=== PATIENT | female | born 1955 | race Caucasian/White ===

== ENCOUNTER 2016-05-13 08:43 | Inpatient (IN) | payer OTHER ==
[~2016-05-13] VITALS: Ht 162.6 cm; Wt 97.0 kg
[~2016-05-13 08:43] MED LIST: AMR2 PO; BUPR75TA20 PO; GLC500 PO; OMEP20TA PO; ONDA4TAB4 PO
[2016-05-13] MEDS ORDERED: METF-384 PO (08:56)
[2016-05-13] MEDS ORDERED: SODIUM CHLORIDE 0.9% 1000ML 1,000 ML IV STA (08:58)
[2016-05-13] MEDS ORDERED: ONDANSETRON INJ 2 MG/ML 2 ML VIAL IV STA (08:58)
[2016-05-13] MEDS ORDERED: HYDROmorphone INJ 0.5 MG/0.5 ML SYR IV STA ×2 (08:58→10:49)
[2016-05-13] MEDS ORDERED: OPTIRAY 320 IV PRN (09:15)
[2016-05-13 09:21] LABS: HEMATOCRIT 36.2 % (37-47); MEAN CELL VOLUME 84.2 fL (80-100); MEAN CORPUSCULAR HEMOGLOBIN 29.1 pg (25-34); MEAN CORPUSCULAR HGB CONC 34.5 g/dl (32-36); MEAN PLATELET VOLUME 10.3 fL (7.4-10.4); PLATELET COUNT 144 K/uL (130-400); WHITE BLOOD COUNT 7.72 K/uL (4.8-10.8)
[2016-05-13 09:27] LABS: URINE APPEARANCE CLEAR (CLEAR); URINE BILIRUBIN NEG (NEG); URINE COLOR YELLOW; URINE EPITHELIAL CELL AUTO 20-30 /lpf (0-5); URINE NITRITE NEG (NEG); URINE PH 5.5 (4.5-7.5); URINE SPECIFIC GRAVITY 1.028 (1.000-1.030); UROBILINOGEN NEG (NEG); ZZUR CULT IF INDIC CLEAN CATCH YES
[2016-05-13 09:28] LABS: MANUAL MICROSCOPIC REQUIRED? NO; REVIEW REQ? NO
[2016-05-13 09:47] LABS: ALB/GLOB RATIO 0.6 (0.9-2); CALCIUM 9.2 mg/dl (8.5-10.1); CREATININE 1.1 mg/dl (0.60-1.20); MAGNESIUM 1.9 mg/dl (1.8-2.4); POTASSIUM 3.7 mmol/L (3.5-5.1)
[2016-05-13 10:09] LABS: BETA-HYDROXYBUTYRATE 9.16 mg/dL (0.2-2.81)
[2016-05-13] MEDS ORDERED: SODIUM CHLORIDE 0.9% 500ML 500 ML IV STA (10:17)
[2016-05-13 10:19] LABS: BASO % 0.6 %; BASO ABS # 0.05 K/uL (0-0.2); COMPLETE YES; EOS % 2.2 %; IG% 0.3 %; LYMPH % 25.9 %; MONO % 15.3 %; NEUT % 55.7 %
[2016-05-13] MEDS ORDERED: LISI-461 PO (10:54)
[2016-05-13] MEDS ORDERED: INSULIN IV INFUSION PROTOCOL STA ×2 (11:09→12:53)
[2016-05-13] MEDS ORDERED: MODERATE STRESS LEVEL ONE ×2 (11:15→13:00)
[2016-05-13] MEDS ORDERED: HHS GOAL RANGE 250-350 mg/dl ONE ×2 (11:15→13:00)
[2016-05-13] MEDS ORDERED: TRAZ50TA35 PO (11:17)
[2016-05-13] MEDS ORDERED: CYCL5TAB PO (11:17)
[2016-05-13] MEDS ORDERED: ATOR80TA PO (11:17)
--- NOTE | 2016-05-13 11:44 | DIAGNOSTIC IMAGING REPORT ---
CT OF THE ABDOMEN AND PELVIS WITH CONTRAST CLINICAL HISTORY: Right lower quadrant abdominal pain. COMPARISON STUDY: CT of the abdomen and pelvis February 29, 2016. TECHNIQUE: Following IV administration of 93 mL of Optiray-320, axial images of the abdomen and pelvis were obtained from the lung bases to the proximal femurs. Images were reviewed in the axial, sagittal, and coronal planes. IV contrast was administered without complication. CT DOSE: 1122.29 mGy.cm FINDINGS: A 5 mm distal right ureteral calculus results in mild to moderate right hydroureteronephrosis. There is perinephric and periureteral ureteral infiltration with wall thickening of the right ureter. No left ureteral calculi are present. A 2 cm lesion arising from the lower pole of the right kidney measures just above water attenuation. This lesion is indeterminate although a cyst is favored. Nodularity liver surface suggests cirrhosis. No hepatic lesions are identified although sensitivity for detection of hypervascular lesions is diminished on this exam. The spleen is mildly enlarged. There are calcified granulomas within the spleen. A 2.1 cm right adrenal nodule is unchanged and is likely benign. The left adrenal gland, left kidney and pancreas are normal. Mild biliary ductal dilatation is unchanged and likely due to prior cholecystectomy. There is no evidence for a bowel obstruction. There is no lymphadenopathy. No suspicious skeletal lesions are identified. IMPRESSION: 1. 5 mm distal right ureteral calculus with resultant mild to moderate right hydroureteronephrosis. Mildly delayed right nephrogram due to the obstruction. Wall thickening of the right ureter is likely due to the obstruction although a superimposed infectious process could appear similar. 2. Cirrhotic liver. Mild splenomegaly. 3. 2 cm right renal lesion. This measures just above water attenuation. This lesion is indeterminate although a cyst is favored. Electronically signed by: Deuce Negron M.D. 05/13/2016 11:42 AM Dictated Date/Time: 05/13/2016 11:36 AM
[2016-05-13] MEDS ORDERED: CEFTRIAXONE SOD INJ 1 GM ADDVIAL IV STA (11:50)
[2016-05-13] MEDS ORDERED: DEXTROSE 50% 50 ML SYR IV PRN (12:00)
[2016-05-13] MEDS ORDERED: INSULIN HUMAN REGULAR IV BOLUS 2.5 UNIT in SYRINGE 0 ML IV SCH (12:00)
[2016-05-13] MEDS ORDERED: GLUCOSE 40% GEL 15 GM TUBE PO PRN (12:00)
[2016-05-13] MEDS ORDERED: GLUCAGON FOR INJ 1 MG VIAL SQ PRN (12:00)
[2016-05-13] MEDS ORDERED: GLUCOSE 10 TABS/TUBE PO PRN (12:00)
[2016-05-13] MEDS ORDERED: INSULIN REGULAR 250 UNITS in SODIUM CHLORIDE 0.9% 250ML 250 ML IV SCH (12:01)
[2016-05-13 12:44] VITALS: BP 128/57; PULSE 84; TEMP 37.5; O2SAT 95; BMI 36.7
[2016-05-13] MEDS ORDERED: ONDANSETRON INJ 2 MG/ML 2 ML VIAL IV PRN (13:00)
[2016-05-13] MEDS ORDERED: TAMSULOSIN HCL 0.4 MG CAP PO ONE (13:00)
[2016-05-13] MEDS ORDERED: INSULIN ASPART 100 UNITS/ML 3 ML PEN SC SCH ×2 (13:00)
[2016-05-13] MEDS ORDERED: CLONAZEPAM 0.5 MG TAB PO PRN (13:15)
[2016-05-13] MEDS ORDERED: MoRPHine SULFATE 4 MG/ML 1 ML CARP\\VIAL IV PRN (13:45)
[2016-05-13] MEDS ORDERED: FLUO20CA35 PO (13:47)
--- NOTE | 2016-05-13 13:50 | History and Physical ---
History & Physical Date & Time of Service: May 13, 2016 at 13:24 Chief Complaint: RLQ Abdominal Pain Primary Care Physician: Lani Andrade D.O. History of Present Illness 60 year old female who presents to the ER with RLQ abdominal pain. Patient reports she has had the pain for the past several weeks however it has been increasing in frequency and intensity over the past few days. She has had intermittent nausea with dry heaving. No vomiting. Several months ago patient was having diarrhea and she self stopped her diabetic medications as she felt it was causing the diarrhea. Since stopping the medicines, diarrhea has resolved. She denies fever and chills. No dysuria or hematuria. She denies chest pain and shortness of breath. No lightheadedness, dizziness, diaphoresis, or syncopal events. In the ER, patient underwent a CT abd/pelvis that showed 5mm distal right ureteral calculi. Glucose is found to be 766 and lipase is 761. Remainder of her labs are unremarkable. Vitas are stable. Patient was treated with IVF, Rocephin, and started in insulin drip. She was also given Dilaudid and Zofran. Past Medical/Surgical History Medical Problems: (1) Robins esophagus Status: Chronic (2) Breast cancer Status: Chronic (3) DM type 2 (diabetes mellitus, type 2) Status: Chronic (4) Dyslipidemia Status: Chronic (5) Fibromyalgia Status: Chronic (6) Hypothyroidism Status: Chronic (7) LIU (nonalcoholic steatohepatitis) Status: Chronic (8) ROXANNE (obstructive sleep apnea) Status: Chronic Surgical Problems: (1) H/O partial mastectomy Status: Chronic (2) H/O tubal ligation Status: Chronic (3) Hx of cholecystectomy Status: Chronic Family History FH: heart disease MOTHER ( at 56 from [place]) Social History Smoking Status: Current Every Day Smoker Alcohol Use: none Marital Status: Immunizations History of Influenza Vaccine: Yes Influenza Vaccine Date: May 26, 2015 History of Tetanus Vaccine?: Yes (UTD) Tetanus Immunization Date: Dec 02, 2007 History of Pneumococcal: Yes Pneumococcal Date: Dec 02, 2007 History of Hepatitis B Vaccine: Yes Hepatitis Immunization Date: September 15, 2013 Multi-Drug Resistant Organisms History of MDRO: No Allergies Coded Allergies: Morphine (Verified Adverse Reaction, Mild, DOES NOT RELIEVE PAIN, 05/13/16) Gabapentin (Verified Adverse Reaction, Unknown, NIGHTMARES, 05/13/16) Home Medications Scheduled Aspirin Enteric Coated (Ecotrin Or Generic), 162 MG PO QPM Atorvastatin Calcium (Lipitor), 80 MG PO DAILY Fluoxetine (Prozac), 40 MG PO DAILY Levothyroxine Sodium (Levothyroxine Sodium), 50 MCG PO DAILY Lisinopril (Zestril), 10 MG PO DAILY Ranitidine Hcl (Zantac), 300 MG PO HS Trazodone Hcl (Trazodone), 50 MG PO HS Scheduled PRN Clonazepam (Klonopin), 0.5 MG PO TID PRN for Anxiety/Agitation Cyclobenzaprine Hcl (Flexeril), 1 TAB PO BID PRN for prn Review of Systems 10 point review of systems was completed with the pertinent positives and negatives noted per the HPI Physical Exam Vital Signs Date Time Temp Pulse Resp B/P Pulse Ox O2 Delivery O2 Flow Rate FiO2 05/13/16 13:03 80 18 173/72 95 Room Air 05/13/16 12:44 37.5 84 16 128/57 95 Room Air 05/13/16 12:25 85 16 128/57 05/13/16 10:27 86 18 144/71 93 Room Air 05/13/16 08:45 37.5 97 18 130/81 95 Room Air General Appearance: no apparent distress Head: normocephalic Eyes: normal inspection, PERRL, EOMI ENT: hearing grossly normal Neck: supple, no JVD Respiratory/Chest: no respiratory distress, + decreased breath sounds Cardiovascular: regular rate, rhythm, no edema, normal peripheral pulses Abdomen/GI: normal bowel sounds, soft, + tenderness (generalized, more pronounced in RLQ) Extremities/Musculoskelatal: normal inspection, no calf tenderness Neurologic/Psych: no motor/sensory deficits, alert, normal mood/affect, oriented x 3 Skin: normal color, warm/dry Diagnostics Laboratory Results Results Past 24 Hours Test 05/13/16 08:40 05/13/16 09:05 05/13/16 11:38 05/13/16 12:54 Range/Units Urine Color YELLOW Urine Appearance CLEAR CLEAR Urine pH 5.5 4.5-7.5 Urine Specific [place] 1.028 1.000-1.030 Urine Protein 1+ NEG Urine Glucose (UA) 3+ NEG Urine Ketones 1+ NEG Urine Occult Blood 2+ NEG Urine Nitrite NEG NEG Urine Bilirubin NEG NEG Urine Urobilinogen NEG NEG Urine Leukocyte Esterase NEG NEG Urine WBC (Auto) 10-30 0-5 /hpf Urine RBC (Auto) 10-30 0-4 /hpf Urine Hyaline Casts (Auto) 1-5 0-5 /lpf Urine Epithelial Cells (Auto) 20-30 0-5 /lpf Urine Bacteria (Auto) 1+ NEG White Blood Count 7.72 4.8-10.8 K/uL Red Blood Count 4.30 4.2-5.4 M/uL Hemoglobin 12.5 12.0-16.0 g/dL Hematocrit 36.2 37-47 % Mean Corpuscular Volume 84.2 80-100 fL Mean Corpuscular Hemoglobin 29.1 25-34 pg Mean Corpuscular Hemoglobin Concent 34.5 32-36 g/dl Platelet Count 144 130-400 K/uL Mean Platelet Volume 10.3 7.4-10.4 fL Neutrophils (%) (Auto) 55.7 % Lymphocytes (%) (Auto) 25.9 % Monocytes (%) (Auto) 15.3 % Eosinophils (%) (Auto) 2.2 % Basophils (%) (Auto) 0.6 % Neutrophils # (Auto) 4.30 1.4-6.5 K/uL Lymphocytes # (Auto) 2.00 1.2-3.4 K/uL Monocytes # (Auto) 1.18 0.11-0.59 K/uL Eosinophils # (Auto) 0.17 0-0.5 K/uL Basophils # (Auto) 0.05 0-0.2 K/uL RDW Standard Deviation 44.8 36.4-46.3 fL RDW Coefficient of Variation 14.6 11.5-14.5 % Immature Granulocyte % (Auto) 0.3 % Immature Granulocyte # (Auto) 0.02 0.00-0.02 K/uL Sodium Level 130 136-145 mmol/L Potassium Level 3.7 3.5-5.1 mmol/L Chloride Level 92 98-107 mmol/L Carbon Dioxide Level 22 21-32 mmol/L Anion Gap 16.0 3-11 mmol/L Blood Urea Nitrogen 14 7-18 mg/dl Creatinine 1.10 0.60-1.20 mg/dl Est Creatinine Clear Calc Drug Dose 60.7 ml/min Estimated GFR () 62.8 Estimated GFR (Non- 54.1 BUN/Creatinine Ratio 13.0 10-20 Random Glucose 766 70-99 mg/dl Calcium Level 9.2 8.5-10.1 mg/dl Magnesium Level 1.9 1.8-2.4 mg/dl Total Bilirubin 0.8 0.2-1 mg/dl Aspartate Amino Transf (AST/SGOT) 21 15-37 U/L Alanine Aminotransferase (ALT/SGPT) 20 12-78 U/L Alkaline Phosphatase 143 45-117 U/L Total Protein 7.5 6.4-8.2 gm/dl Albumin 2.8 3.4-5.0 gm/dl Globulin 4.7 2.5-4.0 gm/dl Albumin/Globulin Ratio 0.6 0.9-2 Lipase 761 73-393 U/L Beta-Hydroxybutyric Acid 9.16 0.2-2.81 mg/dL Bedside Glucose 563 70-90 mg/dl Microbiology Results 05/13/16 Blood Culture, Received Pending 05/13/16 Blood Culture, Received Pending 05/13/16 Urine Culture, Received Pending Diagnostic Radiology CT ABD/PELVIS IMPRESSION: 1. 5 mm distal right ureteral calculus with resultant mild to moderate right hydroureteronephrosis. Mildly delayed right nephrogram due to the obstruction. Wall thickening of the right ureter is likely due to the obstruction although a superimposed infectious process could appear similar. 2. Cirrhotic liver. Mild splenomegaly. 3. 2 cm right renal lesion. This measures just above water attenuation. This lesion is indeterminate although a cyst is favored. Impression Assessment and Plan RIGHT RENAL CALCULI WITH HYDROURETERONEPHROSIS - admit to med/surg - case discussed with Dr. Perez - will start Flomax, IVF - strain urine - U/A from ED likely contaminated; will get straight cath urine - s/p Rocephin in ED; will continue with Zosyn, adjust per culture results - do not suspect sepsis - urine culture 02/2016 grew fluoroquinolone resistant E. Coli SEVERE HYPERGLYCEMIA - patient self stopped diabetic meds several months ago - presenting with blood sugar 700 - hgb a1c 7.3 11/2015, will recheck - will start insulin gtt with transition to SQ - PRP q4h while on insulin gtt - no signs of DKA ELEVATED LIPASE - ? clinical significance - history and physical exam not consistent with pancreatitis - pancreas unremarkable on CT, LFTs WL - ? due to severe hyperglycemia - clear liquids, IVF - follow up level in AM HTN - BP controlled, continue lisinopril HYPOTHYROIDISM - continue levothyroxine ROBINS'S ESOPHAGUS - continue H2 karan DYSLIPIDEMIA - continue statin DVT PROPHYLAXIS - SCDs DISPO - In my clinical judgment this beneficiary meets acute admission criteria, established by [facility], that includes being hospitalized through two midnights. Attending Note: Patient is a 60 yr old female with multiple comorbidities presents with history of worsening RLQ abdominal pain since few days. Abd pain is associated with nausea but denies vomiting. CT abd showed 5mm R ureteral stone with hydroureteronephrosis. Also found to have uncontrolled blood sugar level secondary to medication non compliance. Reports not taking metformin secondary to diarrhea which she reports has resolved. Physical Exam: Vitals signs as noted above General Appearance:Obese, no apparent distress Head: normocephalic, Atraumatic Eyes: normal inspection, EOMI, PERRLA Neck: supple, no JVD, Trachea midline Respiratory/Chest: Decreased breath sounds, CTA, No accessory muscle use Cardiovascular: S1, S2, NSR, No murmur Abdomen/GI:Soft, RLQ tenderness, Bowel sounds present, No guarding/rigidity, no flank tenderness Extremities/Musculoskelatal:normal inspection, no calf tenderness Neurologic/Psych:AAOX3, grossly no focal neurological deficits Skin:normal color,warm Assessment and Plan: Renal caliculi leading to Hydroureteronephrosis: IV fluids, IV antibiotics Pain control Check Cultures Urology consulted WBC:wnl, Hb:12.5 [place] with Flomax for spontaneous voiding Uncontrolled DM II Secondary to medication non compliance Continue Insulin drip Last A1C: 7.3 I personally reviewed the record. Patient is interviewed and examined at bedside. Patient's care is coordinated with Luz Elena Colindres [employer]. Please refer to the documentation above for details of patient's presentation and for discussion of other issues. Advanced Directives Existing Advance Directive: No Existing Living Will: No Existing Power of Social Worker: No VTE Prophylaxis VTE Risk Assessment Done? Y/N: Yes Risk Level: Moderate
[2016-05-13] MEDS ORDERED: CEFTRIAXONE SOD INJ 1 GM ADDVIAL ONE (14:14)
[2016-05-13] MEDS ORDERED: PHARMACY GLYCEMIC MGMT CONSULT PRN (14:45)
[2016-05-13] MEDS ORDERED: PIPERACILL/TAZOBAC CONSULT ACTIVE PRN (15:15)
[2016-05-13] MEDS: SODIUM CHLORIDE 0.9% 1000ML 1,000 ML IV SCH ×2 (15:26→21:28)
--- NOTE | 2016-05-13 15:29 | Pharmacy Progress Note ---
Glycemic Control Intl Consult Date of Service May 13, 2016. Scope Glycemic Pharmacist consulted by DAVID Hamilton on 05/13/16 for glycemic control and to write orders per formerly [facility] inpatient glycemic control protocol Objective Weight (Kilograms): 97.000 Accuchecks BSG (last 24hrs): Test 05/13/16 09:05 05/13/16 11:38 05/13/16 13:13 05/13/16 14:19 Random Glucose 766 mg/dl (70-99) Bedside Glucose 563 mg/dl (70-90) 472 mg/dl (70-90) 414 mg/dl (70-90) Laboratory Data (last 24hrs) Test 05/13/16 09:05 Anion Gap 16.0 mmol/L BUN/Creatinine Ratio 13.0 Blood Urea Nitrogen 14 mg/dl Creatinine 1.10 mg/dl Potassium Level 3.7 mmol/L Sodium Level 130 mmol/L White Blood Count 7.72 K/uL Red Blood Count 4.30 M/uL Hemoglobin 12.5 g/dL Hematocrit 36.2 % Mean Corpuscular Volume 84.2 fL Mean Corpuscular Hemoglobin 29.1 pg Mean Corpuscular Hemoglobin Concent 34.5 g/dl Platelet Count 144 K/uL Mean Platelet Volume 10.3 fL Neutrophils (%) (Auto) 55.7 % Lymphocytes (%) (Auto) 25.9 % Monocytes (%) (Auto) 15.3 % Eosinophils (%) (Auto) 2.2 % Basophils (%) (Auto) 0.6 % Neutrophils # (Auto) 4.30 K/uL Lymphocytes # (Auto) 2.00 K/uL Monocytes # (Auto) 1.18 K/uL Eosinophils # (Auto) 0.17 K/uL Basophils # (Auto) 0.05 K/uL Recent Pertinent Medications Outpatient Anti-diabetic Regimen: * none * A1c = 7.3 % 11/2015 The patient is currently receiving: * Insulin Drip (started in the ED) Risk Factors for Insulin Resistance: * Infection * IVF * Diet Assessment & Plan ASSESSMENT: * 60 yo F admitted with UTI and BSGs in the 700's, initiated on an insulin drip per protocol * BSGs trending down nicely, most recent readings in the low 400's * Apparently patient is known to have T2DM but recently stopped all diabetic medications herself * Most recent A1c is from November, so an up-to-date A1c will be helpful in gauging where her BSGs have been trending * Plan will be to continue insulin drip through the night and reassess in the AM PLAN FOR INPATIENT GLYCEMIC CONTROL: * Continue IV insulin infusion per moderate stress protocol * Goal Range 250 - 350 mg/dl * In the critical care setting, continuous IV insulin infusion has been shown to be the best method for achieving glycemic targets e plan above was derived based on current level of insulin resistance and hospital stress. These recommendations are appropriate for inpatient admission only. Plan of care upon discharge will need to be reassessed to avoid potential outpatient hypo/hyperglycemia. Thank you.
[2016-05-13] MEDS ORDERED: LEVO50TA6 PO (15:40)
[2016-05-13] MEDS ORDERED: RANI300T PO (15:40)
[2016-05-13] MEDS: INSULIN ASPART 100 UNITS/ML 3 ML PEN SC SCH ×3 (15:45→21:30)
[2016-05-13] MEDS: INSULIN REGULAR 250 UNITS in SODIUM CHLORIDE 0.9% 250ML 250 ML IV SCH ×4 (15:49→21:29)
[2016-05-13] MEDS ORDERED: PIPERACILL/TAZOBAC IV 3.375 GM in DEXTROSE 5% 100ML IV ONE (16:00)
[2016-05-13] MEDS ORDERED: CLON0.5T3 PO (17:04)
[2016-05-13 17:20] LABS: BUN/CREATININE RATIO 13.5 (10-20); CALCIUM 8.5 mg/dl (8.5-10.1); CREATININE 0.75 mg/dl (0.60-1.20); POTASSIUM 3.4 mmol/L (3.5-5.1)
--- NOTE | 2016-05-13 17:22 | Urology Consultation ---
History General Date of Service: May 13, 2016. Chief Complaint: right ureteral stone Primary Care Physician: Lani Andrade D.O. Pt seen a urologist before?: No History of Present Illness I am asked by Luz Elena BOB to evaluate and treat patient for stone. SHe is admitted with right renal colic and hyperglycemia. She has had pain for 2 weeks but some of it sounds like back spine problems as she had a radiculopathy down leg and inability to bear weight. More recently she had fever nause aand emesis. Her ct shows a 5mm right UVJ stone with mild hydro. She is afebrile currently with normal white count. Voided urine in ER is contaminated. She is on insulin drip and iv abt now. She feels well. This is her firt stone. Her pain is mostly RLQ with rare right kidney pain. Imaging Imaging: CT Laboratory Results Past 24 Hours Test 05/13/16 08:40 05/13/16 09:05 05/13/16 11:38 05/13/16 12:54 Range/Units Urine Color YELLOW Urine Appearance CLEAR CLEAR Urine pH 5.5 4.5-7.5 Urine Specific [place] 1.028 1.000-1.030 Urine Protein 1+ NEG Urine Glucose (UA) 3+ NEG Urine Ketones 1+ NEG Urine Occult Blood 2+ NEG Urine Nitrite NEG NEG Urine Bilirubin NEG NEG Urine Urobilinogen NEG NEG Urine Leukocyte Esterase NEG NEG Urine WBC (Auto) 10-30 0-5 /hpf Urine RBC (Auto) 10-30 0-4 /hpf Urine Hyaline Casts (Auto) 1-5 0-5 /lpf Urine Epithelial Cells (Auto) 20-30 0-5 /lpf Urine Bacteria (Auto) 1+ NEG White Blood Count 7.72 4.8-10.8 K/uL Red Blood Count 4.30 4.2-5.4 M/uL Hemoglobin 12.5 12.0-16.0 g/dL Hematocrit 36.2 37-47 % Mean Corpuscular Volume 84.2 80-100 fL Mean Corpuscular Hemoglobin 29.1 25-34 pg Mean Corpuscular Hemoglobin Concent 34.5 32-36 g/dl Platelet Count 144 130-400 K/uL Mean Platelet Volume 10.3 7.4-10.4 fL Neutrophils (%) (Auto) 55.7 % Lymphocytes (%) (Auto) 25.9 % Monocytes (%) (Auto) 15.3 % Eosinophils (%) (Auto) 2.2 % Basophils (%) (Auto) 0.6 % Neutrophils # (Auto) 4.30 1.4-6.5 K/uL Lymphocytes # (Auto) 2.00 1.2-3.4 K/uL Monocytes # (Auto) 1.18 0.11-0.59 K/uL Eosinophils # (Auto) 0.17 0-0.5 K/uL Basophils # (Auto) 0.05 0-0.2 K/uL RDW Standard Deviation 44.8 36.4-46.3 fL RDW Coefficient of Variation 14.6 11.5-14.5 % Immature Granulocyte % (Auto) 0.3 % Immature Granulocyte # (Auto) 0.02 0.00-0.02 K/uL Sodium Level 130 136-145 mmol/L Potassium Level 3.7 3.5-5.1 mmol/L Chloride Level 92 98-107 mmol/L Carbon Dioxide Level 22 21-32 mmol/L Anion Gap 16.0 3-11 mmol/L Blood Urea Nitrogen 14 7-18 mg/dl Creatinine 1.10 0.60-1.20 mg/dl Est Creatinine Clear Calc Drug Dose 60.7 ml/min Estimated GFR () 62.8 Estimated GFR (Non- 54.1 BUN/Creatinine Ratio 13.0 10-20 Random Glucose 766 70-99 mg/dl Calcium Level 9.2 8.5-10.1 mg/dl Magnesium Level 1.9 1.8-2.4 mg/dl Total Bilirubin 0.8 0.2-1 mg/dl Aspartate Amino Transf (AST/SGOT) 21 15-37 U/L Alanine Aminotransferase (ALT/SGPT) 20 12-78 U/L Alkaline Phosphatase 143 45-117 U/L Total Protein 7.5 6.4-8.2 gm/dl Albumin 2.8 3.4-5.0 gm/dl Globulin 4.7 2.5-4.0 gm/dl Albumin/Globulin Ratio 0.6 0.9-2 Lipase 761 73-393 U/L Beta-Hydroxybutyric Acid 9.16 0.2-2.81 mg/dL Bedside Glucose 563 70-90 mg/dl Lactic Acid Level 1.2 0.4-2.0 mmol/L Test 05/13/16 13:13 05/13/16 14:19 05/13/16 15:20 05/13/16 16:20 Range/Units Bedside Glucose 472 414 385 70-90 mg/dl Test 05/13/16 16:27 Range/Units Bedside Glucose 352 70-90 mg/dl Microbiology Results 05/13/16 Blood Culture, Received Pending 05/13/16 Blood Culture, Received Pending 05/13/16 Urine Culture, Received Pending 05/13/16 Urine Culture, Received Pending Labs were reviewed and are within normal limits unless listed below. Labs are available in the chart and at [facility] Past History cancer - breast, COPD, diabetes, GERD, hypothyroidism, kidney stones, other ( barretts esoph, LIU liver) Past Surgical History: mastectomy, tubal ligation Family History FH: heart disease MOTHER ( at 56 from [place]) brother had stones Social History Hx Tobacco Use In Past Year?: Yes Smokin pack/day Alcohol: history of alcohol abuse Drug use: none Marital status: Housing status: lives with family Occupation status: unemployed Immunizations History of Influenza Vaccine: Yes Influenza Vaccine Date: May 26, 2015 History of Tetanus Vaccine?: Yes (UTD) Tetanus Immunization Date: Dec 02, 2007 History of Pneumococcal: Yes Pneumococcal Date: Dec 02, 2007 History of Hepatitis B Vaccine: Yes Hepatitis Immunization Date: September 15, 2013 History of MDRO No Allergies Coded Allergies: Morphine (Verified Adverse Reaction, Mild, DOES NOT RELIEVE PAIN, 05/13/16) Gabapentin (Verified Adverse Reaction, Unknown, NIGHTMARES, 05/13/16) Medications Home Medications: Home Meds and Scripts Medications Dose Route/Sig Max Daily Dose Days Date Category Zantac (Ranitidine Hcl) 300 Mg Tab 300 Mg PO HS 02/29/16 Reported Levothyroxine Sodium 50 Mcg Tab 50 Mcg PO DAILY 02/29/16 Reported Trazodone (Trazodone HCl) 50 Mg Tab 50 Mg PO HS 12/13/14 Reported Lipitor (Atorvastatin Calcium) 80 Mg Tab 80 Mg PO DAILY 12/13/14 Reported Flexeril (Cyclobenzaprine Hcl) 5 Mg Tab 1 Tab PO BID PRN 30 12/13/14 Reported Klonopin (Clonazepam) 0.5 Mg Tab 0.5 Mg PO TID PRN 08/14/12 Reported Zestril (Lisinopril) 10 Mg Tab 10 Mg PO DAILY 12/26/11 Reported Ecotrin Or Generic (Aspirin) 81 Mg Tab 162 Mg PO QPM 07/15/11 Reported Prozac (Fluoxetine HCl) 20 Mg Cap 40 Mg PO DAILY 06/28/08 Reported Inpatient Medications: Current Inpatient Medications Medications (Trade) Dose Ordered Sig/Alfonzo Route Start Time Stop Time Status Last Admin Dose Admin Ioversol (Optiray 320) 100 ml UD PRN IV 05/13/16 09:15 05/17/16 09:14 Insulin Aspart (novoLOG ASPART) SLIDING SCALE PCHS SC 05/13/16 13:00 06/12/16 12:59 Glucose (Glucose 40% Gel) UD PRN PO 05/13/16 12:00 06/12/16 11:59 Glucose (Glucose Chew Tab) 1 tabs UD PRN PO 05/13/16 12:00 06/12/16 11:59 Dextrose (Dextrose 50% 50ML Syringe) 50 ml UD PRN IV 05/13/16 12:00 06/12/16 11:59 Glucagon (Glucagon Inj) 1 mg UD PRN SQ 05/13/16 12:00 06/12/16 11:59 Acetaminophen (Tylenol Tab) 650 mg Q4H PRN PO 05/13/16 13:00 06/12/16 12:59 Ondansetron HCl (Zofran Inj) 4 mg Q6H PRN IV 05/13/16 13:00 06/12/16 12:59 Piperacillin Sod/ Tazobactam Sod 1 ea 1 ea UD PRN N/A 05/13/16 15:15 06/12/16 15:14 Sodium Chloride (Nss 1000ml) 1,000 ml @ 125 mls/hr Q8H IV 05/13/16 13:00 06/12/16 12:59 05/13/16 15:26 125 MLS/HR Tamsulosin HCl (Flomax Cap) 0.4 mg QAM PO 05/14/16 09:00 06/13/16 08:59 Aspirin (Ecotrin Tab) 162 mg QPM PO 05/13/16 21:00 06/12/16 20:59 Atorvastatin Calcium (Lipitor Tab) 80 mg DAILY PO 05/14/16 09:00 06/13/16 08:59 Clonazepam (Klonopin Tab) 0.5 mg TID PRN PO 05/13/16 13:15 06/12/16 13:14 Fluoxetine HCl (Prozac Cap) 40 mg DAILY PO 05/14/16 09:00 06/13/16 08:59 Levothyroxine Sodium (Synthroid Tab) 50 mcg DAILYBB PO 05/14/16 06:30 06/13/16 06:59 Lisinopril (Zestril Tab) 10 mg DAILY PO 05/14/16 09:00 06/13/16 08:59 Trazodone HCl (Desyrel Tab) 50 mg HS PO 05/13/16 21:00 06/12/16 20:59 Ranitidine HCl (zANTac TAB) 300 mg HS PO 05/13/16 21:00 06/12/16 20:59 Morphine Sulfate (MoRPHine SULFATE INJ) 3 mg Q4H PRN IV 05/13/16 13:45 05/27/16 13:44 Miscellaneous Information 1 ea 1 ea UD PRN N/A 05/13/16 14:45 06/12/16 14:44 Insulin Human Regular 250 units/ Sodium Chloride 252.5 ml @ 0 mls/hr DAILY@1130 IV 05/13/16 15:00 06/12/16 14:59 05/13/16 15:49 2.4 MLS/HR Piperacillin Sod/ Tazobactam Sod/ Dextrose (Zosyn Iv/D5 100ml) 115 ml @ 28.75 mls/ hr Q8H IV 05/13/16 22:00 05/23/16 21:59 Review of Systems Review of Systems Constitutional: + chills, + fever, No weight loss Neurological: + dizzy Endocrine: + excessive thirst Gastrointestinal: + nausea, + vomiting Cardiovascular: No chest pain, No irregular heartbeat, No palpitations, No swelling ankles/feet Respiratory: + chronic cough, + shortness of breath Musculoskeletal: + arthritis Female : + frequent urination, + kidney stones, + painful urination Physical Exam Vital Signs: Vital Signs Past 12 Hours Date Time Temp Pulse Resp B/P Pulse Ox O2 Delivery O2 Flow Rate FiO2 05/13/16 16:00 Room Air 05/13/16 14:25 85 16 128/57 94 05/13/16 13:03 80 18 173/72 95 Room Air 05/13/16 12:44 37.5 84 16 128/57 95 Room Air 05/13/16 12:25 85 16 128/57 05/13/16 10:27 86 18 144/71 93 Room Air 05/13/16 08:45 37.5 97 18 130/81 95 Room Air Physical Exam: General Appearance: WD/WN, no apparent distress, + obese (does not look toxic, alert energetic, answers all questions clearly) ENT: hearing grossly normal Neck: supple, no adenopathy, no JVD, trachea midline Gastrointestinal: Abdomen: normal abdomen Bladder: normal bladder Renal: normal renal Hernia: absent hernia Extremities: non-tender, normal inspection, no pedal edema, no calf tenderness , normal capillary refill Neurologic/Psychiatric: alert, normal mood/affect, oriented x 3 Skin: normal color, warm/dry, no rash Lymphatic: no adenopathy Assessment & Plan Assessment & Plan 5mm right uvj stone with mild hydro I think it will pass I explained will wait for passage unless she fevers, has renal insufficiency or severe unremitting pain
[2016-05-13 17:30] LABS: BETA-HYDROXYBUTYRATE 7.94 mg/dL (0.2-2.81)
[2016-05-13] MEDS: ACETAMINOPHEN 325 MG TAB PO PRN ×2 (18:39→23:50)
[2016-05-13 19:29] VITALS: BP 133/74; PULSE 84; TEMP 37.1; O2SAT 95
[2016-05-13 20:58] LABS: BUN/CREATININE RATIO 11.4 (10-20); CALCIUM 8.3 mg/dl (8.5-10.1); CREATININE 0.77 mg/dl (0.60-1.20); POTASSIUM 3.1 mmol/L (3.5-5.1)
[2016-05-13] MEDS: ASPIRIN 81 MG ECTAB PO SCH (21:06)
[2016-05-13] MEDS: TRAZODONE HCL 50 MG TAB PO SCH (21:06)
[2016-05-13] MEDS: RANITIDINE HCL 150 MG TAB PO SCH (21:06)
[2016-05-13 21:08] LABS: BETA-HYDROXYBUTYRATE 1.32 mg/dL (0.2-2.81)
[2016-05-13] MEDS: PIPERACILL/TAZOBAC IV 3.375 GM in DEXTROSE 5% 100ML IV SCH (21:28)
[2016-05-13 21:29] VITALS: PULSE 86; O2SAT 95
[2016-05-13] MEDS ORDERED: ASPI81TA21 PO (22:42)
[2016-05-13 23:49] VITALS: BP 124/70; PULSE 71; TEMP 36.6; O2SAT 94
[2016-05-14 00:32] LABS: CALCIUM 8.5 mg/dl (8.5-10.1); CREATININE 0.84 mg/dl (0.60-1.20); POTASSIUM 3.2 mmol/L (3.5-5.1)
[2016-05-14 04:12] LABS: HEMATOCRIT 32.1 % (37-47); MEAN CELL VOLUME 83.6 fL (80-100); MEAN CORPUSCULAR HEMOGLOBIN 29.7 pg (25-34); MEAN CORPUSCULAR HGB CONC 35.5 g/dl (32-36); MEAN PLATELET VOLUME 9.9 fL (7.4-10.4); PLATELET COUNT 128 K/uL (130-400); RED BLOOD COUNT 3.84 M/uL (4.2-5.4); WHITE BLOOD COUNT 6.61 K/uL (4.8-10.8)
[2016-05-14] MEDS: INSULIN REGULAR 250 UNITS in SODIUM CHLORIDE 0.9% 250ML 250 ML IV SCH ×3 (04:28→07:04)
[2016-05-14 04:32] LABS: BUN/CREATININE RATIO 10.6 (10-20); CALCIUM 8.2 mg/dl (8.5-10.1); CREATININE 0.67 mg/dl (0.60-1.20)
[2016-05-14] MEDS: SODIUM CHLORIDE 0.9% 1000ML 1,000 ML IV SCH (04:58)
[2016-05-14] MEDS: PIPERACILL/TAZOBAC IV 3.375 GM in DEXTROSE 5% 100ML IV SCH ×3 (06:08→21:39)
[2016-05-14] MEDS: LEVOTHYROXINE 50 MCG TAB PO SCH (06:10)
[2016-05-14 06:31] LABS: ESTIMATED AVERAGE GLUCOSE 344 mg/dl; HA1C FLAG Normal (Normal)
[2016-05-14 07:48] VITALS: BP 108/63; PULSE 70; TEMP 36.8; O2SAT 93
[2016-05-14 08:00] VITALS: O2SAT 93
[2016-05-14 08:50] LABS: CALCIUM 8.4 mg/dl (8.5-10.1); POTASSIUM 3.3 mmol/L (3.5-5.1)
[2016-05-14] MEDS ORDERED: INSULIN GLARGINE SOLOSTAR 100 UNITS/ML 3 ML PEN SC STA (08:50)
[2016-05-14] MEDS: FLUOXETINE HCL 20 MG CAP PO SCH (08:52)
[2016-05-14] MEDS: ATORVASTATIN 40 MG TAB PO SCH (08:52)
[2016-05-14] MEDS: TAMSULOSIN HCL 0.4 MG CAP PO SCH (08:53)
[2016-05-14 08:54] LABS: BUN/CREATININE RATIO 10.3 (10-20); CREATININE 0.62 mg/dl (0.60-1.20)
[2016-05-14] MEDS: ACETAMINOPHEN 325 MG TAB PO PRN (08:54)
[2016-05-14] MEDS ORDERED: LISINOPRIL 10 MG TAB PO SCH (09:00)
[2016-05-14] MEDS: INSULIN ASPART 100 UNITS/ML 3 ML PEN SC SCH ×4 (09:23→20:57)
--- NOTE | 2016-05-14 09:52 | Pharmacy Progress Note ---
Glycemic Control: Progress Nt Date of Service May 14, 2016. Scope Glycemic Pharmacist consulted by Luz Elena Colindres on 05/13/16 for glycemic control and to write orders per [facility] inpatient glycemic control protocol. Objective Accuchecks BSG (last 24hrs): Test 05/13/16 11:38 05/13/16 13:13 05/13/16 14:19 05/13/16 15:20 Bedside Glucose 563 mg/dl (70-90) 472 mg/dl (70-90) 414 mg/dl (70-90) 385 mg/dl (70-90) Test 05/13/16 16:20 05/13/16 16:27 05/13/16 17:16 05/13/16 17:17 Random Glucose 352 mg/dl (70-99) Bedside Glucose 352 mg/dl (70-90) 358 mg/dl (70-90) 359 mg/dl (70-90) Test 05/13/16 18:32 05/13/16 19:22 05/13/16 20:00 05/13/16 20:19 Bedside Glucose 399 mg/dl (70-90) 371 mg/dl (70-90) 362 mg/dl (70-90) Random Glucose 329 mg/dl (70-99) Test 05/13/16 21:19 05/13/16 22:25 05/13/16 23:19 05/13/16 23:57 Bedside Glucose 294 mg/dl (70-90) 275 mg/dl (70-90) 280 mg/dl (70-90) Random Glucose 261 mg/dl (70-99) Test 05/14/16 00:22 05/14/16 02:21 05/14/16 04:04 05/14/16 04:19 Bedside Glucose 263 mg/dl (70-90) 268 mg/dl (70-90) 245 mg/dl (70-90) Random Glucose 245 mg/dl (70-99) Test 05/14/16 06:00 05/14/16 07:00 05/14/16 07:52 05/14/16 08:00 Bedside Glucose 238 mg/dl (70-90) 224 mg/dl (70-90) 236 mg/dl (70-90) Random Glucose 239 mg/dl (70-99) Laboratory Data (last 24hrs) Test 05/13/16 16:20 05/13/16 20:00 05/13/16 23:57 05/14/16 04:04 Anion Gap 9.0 mmol/L 11.0 mmol/L 12.0 mmol/L 9.0 mmol/L BUN/Creatinine Ratio 13.5 11.4 10.0 10.6 Blood Urea Nitrogen 10 mg/dl 9 mg/dl 8 mg/dl 7 mg/dl Creatinine 0.75 mg/dl 0.77 mg/dl 0.84 mg/dl 0.67 mg/dl Potassium Level 3.4 mmol/L 3.1 mmol/L 3.2 mmol/L 3.0 mmol/L Sodium Level 136 mmol/L 136 mmol/L 140 mmol/L 141 mmol/L Hemoglobin A1c 13.6 % White Blood Count 6.61 K/uL Test 05/14/16 07:52 Anion Gap 13.0 mmol/L BUN/Creatinine Ratio 10.3 Blood Urea Nitrogen 6 mg/dl Creatinine 0.62 mg/dl Potassium Level 3.3 mmol/L Sodium Level 144 mmol/L HbA1c: Test 05/14/16 04:04 Hemoglobin A1c 13.6 % (4.5-5.6) H Recent Pertinent Medications Outpatient Anti-diabetic Regimen: * None - patient self-stopped all of her diabetes medications * A1c increased from 7.6% 11/2015 to 13.6% 05/14/16 The patient is currently receiving: * Insulin drip @ 1.4 units / hr * Novolog [facility] Risk Factors for Insulin Resistance: * Infection: UTI - on Zosyn * Diet: Clear liquid Assessment & Plan ASSESSMENT: * ADA & AACE recommend a goal blood sugar range 140-180 mg/dl for the majority of critically ill & non-critically ill patients. However, more stringent targets may be selected in individual cases. 05/13/16 * 60 yo F admitted with UTI and BSGs in the 700's, initiated on an insulin drip per protocol * BSGs trending down nicely, most recent readings in the low 400's * Apparently patient is known to have T2DM but recently stopped all diabetic medications herself * Most recent A1c is from November, so an up-to-date A1c will be helpful in gauging where her BSGs have been trending * Plan will be to continue insulin drip through the night and reassess in the AM 05/14/16 * A1c increased significantly over the last 5 months 2nd patient self- discontinuing all diabetes medications. Estimated average BSG 344 mg/dL as an outpatient. Patient may experience symptoms of hypoglycemia even at higher BSG' s - will have high goal range. * Anion gap and CO2 wnl. BSG's maintained close to goal range of 250-350 mg/ dL. OK to transition off gtt at this time. * Will decrease goal range to 140-180 mg/dL * Will give Lantus slightly less than weight-based estimate x1 now * Will stop drip 2 hours after Lantus administration (if not already turned off based on BSG's) * Will start Novolog ACHS at lunch today - higher goal 2nd likely inability to tolerate lower BSG's. Slightly tighter than weight-based correction factor 2nd higher goal range. Weight-based carb ratio. * Bonny (RN) called - BSG's increasing 2nd patient eating [employer]eps[employer], [place] ice, etc. Novolog 19 units administered at lunch for BSG of 393 mg/dL. Counseled to re-check BSG in 2 hr * 2 hr re-check trending down, but not significantly. Insulin gtt off. Will give one-time IV bolus and re-check at dinner * Two additional overnight checks tonight PLAN FOR INPATIENT GLYCEMIC CONTROL: * Basal insulin with LANTUS 16 units SQ x1 this AM * D/c insulin drip by Dianne - Dr. Schaefer aware * Basal insulin with LANTUS 12 units SQ BID starting this evening * Hold for BSG < 100 mg/dL * 1/2 dose for BSG 100-139 mg/dL * Correctional Insulin with NOVOLOG per scale ACHS or Q6hrs while NPO * Goal Range: Low 140 mg/dL - High 180 mg/dL * Correction Factor: 20 mg/dL/unit * Nutritional / Prandial insulin per carb ratio of 1 unit per 8 grams CHO consumed * Regular insulin 5 units IV x1 now * Please note that the plan above was derived based on current level of insulin resistance and hospital stress. These recommendations are appropriate for inpatient admission only. Plan of care upon discharge will need to be reassessed to avoid potential outpatient hypo/hyperglycemia. Thank you.
[2016-05-14] MEDS: POTASSIUM CHLORIDE 20 MEQ TABCR PO SCH ×2 (11:18→20:31)
[2016-05-14] MEDS: SODIUM CHLOR 0.45% + 20MEQ KCL 1,000 ML IV SCH ×2 (11:42→20:30)
[2016-05-14 12:12] VITALS: BP 112/70; PULSE 72; TEMP 36.5; O2SAT 94
[2016-05-14 12:13] VITALS: BMI 36.7
[2016-05-14 12:33] LABS: BUN/CREATININE RATIO 8.7 (10-20); CREATININE 0.74 mg/dl (0.60-1.20); POTASSIUM 3.3 mmol/L (3.5-5.1)
[2016-05-14 12:43] LABS: BETA-HYDROXYBUTYRATE 2.36 mg/dL (0.2-2.81)
[2016-05-14] MEDS ORDERED: INSULIN REGULAR 5 UNITS in SYRINGE 0 ML IV STA (14:45)
--- NOTE | 2016-05-14 15:10 | Progress Note ---
Medicine Progress Note Date & Time of Visit: May 14, 2016 at 14:59. Subjective Patient seen and examined. Reports an episode of mild right flank, radiating to groin, pain this morning that was relieved with Tylenol. Denies nausea, vomiting. Notes that she stopped taking all of her diabetes medications between November to January of last year. [place] that metformin was giving her diarrhea. Objective Last 8 Hrs Date Time Temp Pulse Resp B/P Pulse Ox O2 Delivery O2 Flow Rate FiO2 05/14/16 12:12 36.5 72 16 112/70 94 Room Air 05/14/16 08:00 93 Room Air 05/14/16 07:48 36.8 70 16 108/63 93 Room Air Physical Exam: General-awake; alert; NAD Eyes-EOMI; no scleral icterus Neck-no stridor; trachea midline Lungs-CTA bilaterally; no wheezes/crackles Heart-RRR; no m/r/g Abdomen-mild RLQ tenderness to palpation; no guarding; soft; ND; nBS Back-no CVA tenderness Neuro-no gross focal deficits Laboratory Results: Last 24 Hours Test 05/13/16 15:20 05/13/16 16:20 05/13/16 16:27 05/13/16 17:16 Bedside Glucose 385 mg/dl 352 mg/dl 358 mg/dl Sodium Level 136 mmol/L Potassium Level 3.4 mmol/L Chloride Level 100 mmol/L Carbon Dioxide Level 27 mmol/L Anion Gap 9.0 mmol/L Blood Urea Nitrogen 10 mg/dl Creatinine 0.75 mg/dl Est Creatinine Clear Calc Drug Dose 89.1 ml/min Estimated GFR () 99.7 Estimated GFR (Non- 86.0 BUN/Creatinine Ratio 13.5 Random Glucose 352 mg/dl Calcium Level 8.5 mg/dl Beta-Hydroxybutyric Acid 7.94 mg/dL Test 05/13/16 17:17 05/13/16 18:32 05/13/16 19:22 05/13/16 20:00 Bedside Glucose 359 mg/dl 399 mg/dl 371 mg/dl Sodium Level 136 mmol/L Potassium Level 3.1 mmol/L Chloride Level 100 mmol/L Carbon Dioxide Level 25 mmol/L Anion Gap 11.0 mmol/L Blood Urea Nitrogen 9 mg/dl Creatinine 0.77 mg/dl Est Creatinine Clear Calc Drug Dose 86.8 ml/min Estimated GFR () 96.6 Estimated GFR (Non- 83.3 BUN/Creatinine Ratio 11.4 Random Glucose 329 mg/dl Calcium Level 8.3 mg/dl Beta-Hydroxybutyric Acid 1.32 mg/dL Test 05/13/16 20:19 05/13/16 21:19 05/13/16 22:25 05/13/16 23:19 Bedside Glucose 362 mg/dl 294 mg/dl 275 mg/dl 280 mg/dl Test 05/13/16 23:57 05/14/16 00:22 05/14/16 02:21 05/14/16 04:04 Sodium Level 140 mmol/L 141 mmol/L Potassium Level 3.2 mmol/L 3.0 mmol/L Chloride Level 102 mmol/L 106 mmol/L Carbon Dioxide Level 26 mmol/L 26 mmol/L Anion Gap 12.0 mmol/L 9.0 mmol/L Blood Urea Nitrogen 8 mg/dl 7 mg/dl Creatinine 0.84 mg/dl 0.67 mg/dl Est Creatinine Clear Calc Drug Dose 79.5 ml/min 99.7 ml/min Estimated GFR () 86.9 110.0 Estimated GFR (Non- 75.0 94.9 BUN/Creatinine Ratio 10.0 10.6 Random Glucose 261 mg/dl 245 mg/dl Calcium Level 8.5 mg/dl 8.2 mg/dl Bedside Glucose 263 mg/dl 268 mg/dl White Blood Count 6.61 K/uL Red Blood Count 3.84 M/uL Hemoglobin 11.4 g/dL Hematocrit 32.1 % Mean Corpuscular Volume 83.6 fL Mean Corpuscular Hemoglobin 29.7 pg Mean Corpuscular Hemoglobin Concent 35.5 g/dl RDW Standard Deviation 44.4 fL RDW Coefficient of Variation 14.7 % Platelet Count 128 K/uL Mean Platelet Volume 9.9 fL Estimated Average Glucose 344 mg/dl Hemoglobin A1c 13.6 % Total Bilirubin 0.5 mg/dl Direct Bilirubin 0.2 mg/dl Aspartate Amino Transf (AST/SGOT) 17 U/L Alanine Aminotransferase (ALT/SGPT) 20 U/L Alkaline Phosphatase 92 U/L Total Protein 6.6 gm/dl Albumin 2.4 gm/dl Lipase 302 U/L Test 05/14/16 04:19 05/14/16 06:00 05/14/16 07:00 05/14/16 07:52 Bedside Glucose 245 mg/dl 238 mg/dl 224 mg/dl Sodium Level 144 mmol/L Potassium Level 3.3 mmol/L Chloride Level 108 mmol/L Carbon Dioxide Level 23 mmol/L Anion Gap 13.0 mmol/L Blood Urea Nitrogen 6 mg/dl Creatinine 0.62 mg/dl Est Creatinine Clear Calc Drug Dose 107.8 ml/min Estimated GFR () 112.8 Estimated GFR (Non- 97.3 BUN/Creatinine Ratio 10.3 Random Glucose 239 mg/dl Calcium Level 8.4 mg/dl Total Bilirubin 0.5 mg/dl Direct Bilirubin 0.2 mg/dl Aspartate Amino Transf (AST/SGOT) 21 U/L Alanine Aminotransferase (ALT/SGPT) 18 U/L Alkaline Phosphatase 90 U/L Total Protein 6.5 gm/dl Albumin 2.4 gm/dl Lipase 208 U/L Test 05/14/16 08:00 05/14/16 09:03 05/14/16 10:39 05/14/16 11:24 Bedside Glucose 236 mg/dl 488 mg/dl 395 mg/dl 370 mg/dl Test 05/14/16 11:55 05/14/16 12:22 05/14/16 14:36 Sodium Level 137 mmol/L Potassium Level 3.3 mmol/L Chloride Level 103 mmol/L Carbon Dioxide Level 25 mmol/L Anion Gap 9.0 mmol/L Blood Urea Nitrogen 6 mg/dl Creatinine 0.74 mg/dl Est Creatinine Clear Calc Drug Dose 90.3 ml/min Estimated GFR () 101.3 Estimated GFR (Non- 87.4 BUN/Creatinine Ratio 8.7 Random Glucose 342 mg/dl Calcium Level 8.0 mg/dl Beta-Hydroxybutyric Acid 2.36 mg/dL Bedside Glucose 393 mg/dl 352 mg/dl Assessment & Plan RIGHT RENAL CALCULI - Urology consulted - no procedure planned at this time - continue Flomax, IVF - strain urine COMPLICATED UTI - s/p Rocephin in ED; continue with Zosyn, adjust per culture results - urine culture with E coli; sensitivities pending - urine culture 02/2016 grew fluoroquinolone resistant E. Coli UNCONTROLLED TYPE 2 DM WITH SEVERE HYPERGLYCEMIA - patient self stopped diabetic meds last fall - hgb a1c 13.6 - glycemic pharmacy consulted - transitioned from insulin drip to insulin sq ELEVATED LIPASE - ? clinical significance - history and physical exam not consistent with pancreatitis - pancreas unremarkable on CT, LFTs WL - resolved HTN - low-normotensive - hold lisinopril HYPOTHYROIDISM - continue levothyroxine ROBINS'S ESOPHAGUS - continue H2 karan DYSLIPIDEMIA - continue statin DVT PROPHYLAXIS - SCDs Discharge planning: home Consultants: Urology Procedures: CT a/p 1. 5 mm distal right ureteral calculus with resultant mild to moderate right hydroureteronephrosis. Mildly delayed right nephrogram due to the obstruction. Wall thickening of the right ureter is likely due to the obstruction although a superimposed infectious process could appear similar. 2. Cirrhotic liver. Mild splenomegaly. 3. 2 cm right renal lesion. This measures just above water attenuation. This lesion is indeterminate although a cyst is favored. Current Inpatient Medications: Current Inpatient Medications Medications (Trade) Dose Ordered Sig/Alfonzo Route Start Time Stop Time Status Last Admin Dose Admin Ioversol (Optiray 320) 100 ml UD PRN IV 05/13/16 09:15 05/17/16 09:14 Glucose (Glucose 40% Gel) UD PRN PO 05/13/16 12:00 06/12/16 11:59 Glucose (Glucose Chew Tab) 1 tabs UD PRN PO 05/13/16 12:00 06/12/16 11:59 Dextrose (Dextrose 50% 50ML Syringe) 50 ml UD PRN IV 05/13/16 12:00 06/12/16 11:59 Glucagon (Glucagon Inj) 1 mg UD PRN SQ 05/13/16 12:00 06/12/16 11:59 Acetaminophen (Tylenol Tab) 650 mg Q4H PRN PO 05/13/16 13:00 06/12/16 12:59 05/14/16 08:54 650 MG Ondansetron HCl (Zofran Inj) 4 mg Q6H PRN IV 05/13/16 13:00 06/12/16 12:59 Piperacillin Sod/ Tazobactam Sod (Consult) 1 ea UD PRN N/A 05/13/16 15:15 06/12/16 15:14 Tamsulosin HCl (Flomax Cap) 0.4 mg QAM PO 05/14/16 09:00 06/13/16 08:59 05/14/16 08:53 0.4 MG Aspirin (Ecotrin Tab) 162 mg QPM PO 05/13/16 21:00 06/12/16 20:59 05/13/16 21:06 162 MG Atorvastatin Calcium (Lipitor Tab) 80 mg DAILY PO 05/14/16 09:00 06/13/16 08:59 05/14/16 08:52 80 MG Clonazepam (Klonopin Tab) 0.5 mg TID PRN PO 05/13/16 13:15 06/12/16 13:14 Fluoxetine HCl (Prozac Cap) 40 mg DAILY PO 05/14/16 09:00 06/13/16 08:59 05/14/16 08:52 40 MG Levothyroxine Sodium (Synthroid Tab) 50 mcg DAILYBB PO 05/14/16 06:30 06/13/16 06:59 05/14/16 06:10 50 MCG Lisinopril (Zestril Tab) 10 mg DAILY PO 05/14/16 09:00 06/13/16 08:59 Future Hold 05/14/16 08:53 10 MG Trazodone HCl (Desyrel Tab) 50 mg HS PO 05/13/16 21:00 06/12/16 20:59 05/13/16 21:06 50 MG Ranitidine HCl (zANTac TAB) 300 mg HS PO 05/13/16 21:00 06/12/16 20:59 05/13/16 21:06 300 MG Morphine Sulfate (MoRPHine SULFATE INJ) 3 mg Q4H PRN IV 05/13/16 13:45 05/27/16 13:44 Miscellaneous Information 1 ea 1 ea UD PRN N/A 05/13/16 14:45 06/12/16 14:44 Piperacillin Sod/ Tazobactam Sod/ Dextrose (Zosyn Iv/D5 100ml) 115 ml @ 28.75 mls/ hr Q8H IV 05/13/16 22:00 05/23/16 21:59 05/14/16 14:24 28.75 MLS/HR Insulin Aspart SLIDING SCALE ACHS SC 05/14/16 12:00 06/13/16 11:59 05/14/16 12:26 19 UNITS Potassium Chloride/Sodium Chloride (1/2 Nss + 20meq KCl 1000ml) 1,000 ml @ 100 mls/hr Q10H IV 05/14/16 11:00 06/13/16 10:59 05/14/16 11:42 100 MLS/HR Potassium Chloride (Klor-Con Tab) 20 meq BID PO 05/14/16 09:30 06/13/16 09:29 05/14/16 11:18 20 MEQ Insulin Aspart (novoLOG ASPART) SLIDING SCALE TODAY@0000,0400 SC 05/15/16 00:00 05/15/16 04:01 Insulin Glargine (Lantus Solostar Pen) HOLD FOR BSG < 100 MG/D... BID SC 05/14/16 21:00 06/13/16 20:59
[2016-05-14 17:00] VITALS: O2SAT 94
[2016-05-14] MEDS: RANITIDINE HCL 150 MG TAB PO SCH (20:30)
[2016-05-14] MEDS: TRAZODONE HCL 50 MG TAB PO SCH (20:31)
[2016-05-14] MEDS: ASPIRIN 81 MG ECTAB PO SCH (20:31)
[2016-05-14 20:37] VITALS: BP 119/56; PULSE 81; TEMP 37; O2SAT 96
[2016-05-14] MEDS: HYDROmorphone INJ 0.5 MG/0.5 ML SYR IV PRN ×2 (20:49→23:12)
[2016-05-14] MEDS: INSULIN GLARGINE SOLOSTAR 100 UNITS/ML 3 ML PEN SC SCH (20:57)
[2016-05-15 00:42] VITALS: BP 120/70; PULSE 86; TEMP 36.9; O2SAT 94
[2016-05-15] MEDS: INSULIN ASPART 100 UNITS/ML 3 ML PEN SC SCH ×7 (04:23→23:43)
[2016-05-15 05:53] LABS: HEMATOCRIT 34.5 % (37-47); MEAN CELL VOLUME 85.6 fL (80-100); MEAN CORPUSCULAR HEMOGLOBIN 28.3 pg (25-34); MEAN PLATELET VOLUME 9.8 fL (7.4-10.4); PLATELET COUNT 137 K/uL (130-400); RED BLOOD COUNT 4.03 M/uL (4.2-5.4); WHITE BLOOD COUNT 6.22 K/uL (4.8-10.8)
[2016-05-15] MEDS: PIPERACILL/TAZOBAC IV 3.375 GM in DEXTROSE 5% 100ML IV SCH (06:07)
[2016-05-15] MEDS: SODIUM CHLOR 0.45% + 20MEQ KCL 1,000 ML IV SCH ×2 (06:07→17:41)
[2016-05-15] MEDS: LEVOTHYROXINE 50 MCG TAB PO SCH (06:13)
[2016-05-15] MEDS: HYDROmorphone INJ 0.5 MG/0.5 ML SYR IV PRN (06:20)
[2016-05-15 06:27] LABS: BUN/CREATININE RATIO 8.3 (10-20); CALCIUM 8.3 mg/dl (8.5-10.1); CREATININE 0.76 mg/dl (0.60-1.20); POTASSIUM 3.8 mmol/L (3.5-5.1)
[2016-05-15 06:49] LABS: BETA-HYDROXYBUTYRATE 2.23 mg/dL (0.2-2.81)
[2016-05-15 07:09] VITALS: BP 123/77; PULSE 75; TEMP 36.4; O2SAT 95
[2016-05-15] MEDS: TAMSULOSIN HCL 0.4 MG CAP PO SCH (08:19)
[2016-05-15] MEDS: POTASSIUM CHLORIDE 20 MEQ TABCR PO SCH ×2 (08:19→20:19)
[2016-05-15] MEDS: ATORVASTATIN 40 MG TAB PO SCH (08:19)
[2016-05-15] MEDS: FLUOXETINE HCL 20 MG CAP PO SCH (08:19)
[2016-05-15] MEDS: INSULIN GLARGINE SOLOSTAR 100 UNITS/ML 3 ML PEN SC SCH ×2 (08:26→20:27)
--- NOTE | 2016-05-15 09:05 | EMERGENCY ROOM VISIT NOTE ---
History First contact with patient: 08:50 Chief Complaint: HIP PAIN Stated Complaint: HYPERGLYCEMIA, RENAL CALCULI History of Present Illness The patient is a 60 year old female who presents to the Emergency Department for evaluation of pain in her RIGHT lower abdomen. She reports that she is expresses pain for the past 2 weeks. She has pain that radiates down the anterior surface of the right thigh and into the groin. She denies any pain in her back. She reports prior history of cholecystectomy. She denies any previous surgeries. She does have a past medical history of hypertension, hyperlipidemia, fatty liver disease, and TIA. She is also treated for diabetes. She admits that she has not taken her diabetic medications since December as they give her "explosive diarrhea". Patient reports trying nothing for her symptoms of abdominal pain to this point. She rates her current discomfort as an 8/10. She denies any fevers, chills, headaches, dizziness, lightheadedness, chest pain, palpations, short of breath, hematochezia, melena, hematuria, or dysuria. Review of Systems A complete 10-point Review of Systems was discussed with the patient, with pertinent positives and negatives listed in the History of Present Illness. All remaining Review of Systems questions can be considered negative unless otherwise specified. Past Medical/Surgical History Medical Problems: (1) [place] esophagus (2) Breast cancer (3) DM type 2 (diabetes mellitus, type 2) (4) Dyslipidemia (5) Fibromyalgia (6) Hypothyroidism (7) LIU (nonalcoholic steatohepatitis) (8) ROXANNE (obstructive sleep apnea) Surgical Problems: (1) H/O partial mastectomy (2) H/O tubal ligation (3) Hx of cholecystectomy Family History FH: heart disease MOTHER ( at 56 from [place]) Social History Smoking Status: Current Every Day Smoker Smokeless Tobacco Use: Yes Alcohol Use: none Drug Use: none Marital Status: Housing Status: lives with significant other Occupation Status: unemployed Current/Historical Medications Scheduled Aspirin Enteric Coated (Ecotrin Or Generic), 162 MG PO QPM Atorvastatin Calcium (Lipitor), 80 MG PO DAILY Cephalexin Monohydrate (Cephalexin), 500 MG PO BID Fluoxetine (Prozac), 40 MG PO DAILY Insulin Isophan/Regular (Novolin 70/30), 30 UNITS SC BIDM Levothyroxine Sodium (Levothyroxine Sodium), 50 MCG PO DAILY Lisinopril (Zestril), 10 MG PO DAILY Nystatin (Topical) (Nyamyc), 1 APPLN TOP BID Ranitidine Hcl (Zantac), 300 MG PO HS Tamsulosin HCl (Tamsulosin HCl), 0.4 MG PO QAM Trazodone Hcl (Trazodone), 50 MG PO HS Scheduled PRN Clonazepam (Klonopin), 0.5 MG PO TID PRN for Anxiety/Agitation Cyclobenzaprine Hcl (Flexeril), 1 TAB PO BID PRN for prn Allergies Coded Allergies: Morphine (Verified Adverse Reaction, Mild, DOES NOT RELIEVE PAIN, 05/13/16) Gabapentin (Verified Adverse Reaction, Unknown, NIGHTMARES, 05/13/16) Physical Exam Vital Signs Date Time Temp Pulse Resp B/P Pulse Ox O2 Delivery O2 Flow Rate FiO2 05/13/16 12:44 37.5 84 16 128/57 95 Room Air 05/13/16 12:25 85 16 128/57 05/13/16 10:27 86 18 144/71 93 Room Air 05/13/16 08:45 37.5 97 18 130/81 95 Room Air Pain Rating (0-10): 8 Physical Exam VITAL SIGNS - Vital signs and nursing notes were reviewed. GENERAL - 60-year-old female appearing her stated age who is in no acute distress. Communicates well with provider and answers questions appropriately. LUNGS - Chest wall symmetric without accessory muscle use, intercostals retractions, or central cyanosis. Normal vesicular breath sounds CTA B/L. No wheezes, rales, or rhonchi appreciated. CARDIAC - RRR with S1/S2. No murmur, rubs, or gallops appreciated. ABDOMEN - Abdominal contour obese and without pulsations or visible masses. BS normoactive all four quadrants. Moderate tenderness to palpation appreciated in the RIGHT Lower quadrant. No guarding. No Rebound Tenderness. Negative Rovsing' s. Negative Lewis's. No palpable masses, hepatosplenomegaly, or ascites noted. EXTREMITIES - No clubbing or peripheral cyanosis. No pretibial edema present. +3 /5 radial and dorsalis pedis pulses palpated throughout. PSYCH - A&Ox3 and cooperates fully with examiner. Pt is very pleasant and interacts well with examiner. Medical Decision & Procedures ER Provider Diagnostic Interpretation: Radiological imaging and reports were reviewed by myself. Radiologist's Interpretation as follows: CT OF THE ABDOMEN AND PELVIS WITH CONTRAST CLINICAL HISTORY: Right lower quadrant abdominal pain. COMPARISON STUDY: CT of the abdomen and pelvis February 29, 2016. TECHNIQUE: Following IV administration of 93 mL of Optiray-320, axial images of the abdomen and pelvis were obtained from the lung bases to the proximal femurs. Images were reviewed in the axial, sagittal, and coronal planes. IV contrast was administered without complication. CT DOSE: 1122.29 mGy.cm FINDINGS: A 5 mm distal right ureteral calculus results in mild to moderate right hydroureteronephrosis. There is perinephric and periureteral ureteral infiltration with wall thickening of the right ureter. No left ureteral calculi are present. A 2 cm lesion arising from the lower pole of the right kidney measures just above water attenuation. This lesion is indeterminate although a cyst is favored. Nodularity liver surface suggests cirrhosis. No hepatic lesions are identified although sensitivity for detection of hypervascular lesions is diminished on this exam. The spleen is mildly enlarged. There are calcified granulomas within the spleen. A 2.1 cm right adrenal nodule is unchanged and is likely benign. The left adrenal gland, left kidney and pancreas are normal. Mild biliary ductal dilatation is unchanged and likely due to prior cholecystectomy. There is no evidence for a bowel obstruction. There is no lymphadenopathy. No suspicious skeletal lesions are identified. IMPRESSION: 1. 5 mm distal right ureteral calculus with resultant mild to moderate right hydroureteronephrosis. Mildly delayed right nephrogram due to the obstruction. Wall thickening of the right ureter is likely due to the obstruction although a superimposed infectious process could appear similar. 2. Cirrhotic liver. Mild splenomegaly. 3. 2 cm right renal lesion. This measures just above water attenuation. This lesion is indeterminate although a cyst is favored. Laboratory Results Test 05/13/16 08:40 05/13/16 09:05 Urine Color YELLOW Urine Appearance CLEAR (CLEAR) Urine pH 5.5 (4.5-7.5) Urine Specific [place] 1.028 (1.000-1.030) Urine Protein 1+ (NEG) Urine Glucose (UA) 3+ (NEG) Urine Ketones 1+ (NEG) Urine Occult Blood 2+ (NEG) Urine Nitrite NEG (NEG) Urine Bilirubin NEG (NEG) Urine Urobilinogen NEG (NEG) Urine Leukocyte Esterase NEG (NEG) Urine WBC (Auto) 10-30 /hpf (0-5) Urine RBC (Auto) 10-30 /hpf (0-4) Urine Hyaline Casts (Auto) 1-5 /lpf (0-5) Urine Epithelial Cells (Auto) 20-30 /lpf (0-5) Urine Bacteria (Auto) 1+ (NEG) Immature Granulocyte % (Auto) 0.3 % White Blood Count 7.72 K/uL (4.8-10.8) Red Blood Count 4.30 M/uL (4.2-5.4) Hemoglobin 12.5 g/dL (12.0-16.0) Hematocrit 36.2 % (37-47) Mean Corpuscular Volume 84.2 fL (80-100) Mean Corpuscular Hemoglobin 29.1 pg (25-34) Mean Corpuscular Hemoglobin Concent 34.5 g/dl (32-36) Platelet Count 144 K/uL (130-400) Mean Platelet Volume 10.3 fL (7.4-10.4) Neutrophils (%) (Auto) 55.7 % Lymphocytes (%) (Auto) 25.9 % Monocytes (%) (Auto) 15.3 % Eosinophils (%) (Auto) 2.2 % Basophils (%) (Auto) 0.6 % Neutrophils # (Auto) 4.30 K/uL (1.4-6.5) Lymphocytes # (Auto) 2.00 K/uL (1.2-3.4) Monocytes # (Auto) 1.18 K/uL (0.11-0.59) Eosinophils # (Auto) 0.17 K/uL (0-0.5) Basophils # (Auto) 0.05 K/uL (0-0.2) Immature Granulocyte # (Auto) 0.02 K/uL (0.00-0.02) Magnesium Level 1.9 mg/dl (1.8-2.4) Globulin 4.7 gm/dl (2.5-4.0) Albumin/Globulin Ratio 0.6 (0.9-2) Medications Administered Medications (Trade) Dose Ordered Sig/Alfonzo Route Start Time Stop Time Status Last Admin Dose Admin Sodium Chloride (Nss 1000ml) 1,000 ml @ 125 mls/hr Q8H STAT IV 05/13/16 08:58 05/13/16 14:49 DC 05/13/16 09:14 125 MLS/HR Hydromorphone HCl (Dilaudid Inj) 0.5 mg NOW STAT IV 05/13/16 08:58 05/13/16 09:00 DC 05/13/16 09:14 0.5 MG Ondansetron HCl 4 mg 4 mg NOW STAT IV 05/13/16 08:58 05/13/16 09:00 DC 05/13/16 09:14 4 MG Sodium Chloride (Nss 500ml) 500 ml @ 999 mls/hr Q31M STAT IV 05/13/16 10:17 05/13/16 10:47 DC 05/13/16 10:45 999 MLS/HR Hydromorphone HCl 0.5 mg 0.5 mg NOW STAT IV 05/13/16 10:49 05/13/16 10:50 DC 05/13/16 11:04 0.5 MG Insulin Human Regular 2.5 unit/ Syringe 2.5 ml @ 2.5 mls/min TODAY@1200 IV 05/13/16 12:00 05/13/16 14:48 DC 05/13/16 12:57 2.5 MLS/MIN Insulin Human Regular/Sodium Chloride (novoLIN-R/Nss 250ml) 252.5 ml @ 0 mls/hr TODAY@1201 IV 05/13/16 12:01 05/13/16 14:47 DC 05/13/16 12:58 2.4 MLS/HR Ceftriaxone Sodium (Rocephin Inj) 1 gm NOW STAT IV 05/13/16 11:50 05/13/16 11:51 DC 05/13/16 14:24 1 GM ED Course Patient was seen and evaluated by myself. Labs were drawn, saline lock in place. Patient was hydrated with normal saline at a rate of 125 mL per hour. She was treated with 0.5 mg Dilaudid and [address] of the abdomen and pelvis with IV contrast was ordered. Laboratory results demonstrate no acute leukocytosis, significant anemia, or bandemia. The patient has no significant electrolyte abnormalities. Patient's blood glucose was significantly elevated at 766. Bicarbonate was not elevated. Her lipase was elevated at 761. Urinalysis suggests possible infection, however there is only slight ketones and slight glucose despite the patient's significantly elevated blood glucose level. The patient was hydrated with 500 mL normal saline bolus and received an additional 0.5 mg Dilaudid for pain. At the recommendation of pharmacy, the patient was treated with a moderate stress dose of insulin drip and bolus. She received 1 g of Rocephin intravenously for her urinary symptoms. CT of the abdomen and pelvis demonstrates distal obstructing ureteral stone. Given the patient's ongoing pain with associated urinary findings in the setting of a diabetic patient was uncontrolled, I do feel the patient warrants admission for further evaluation and management, specifically with intentions for glycemic control. The case was reviewed with the [facility] hospitalist who admits the patient stable condition. Medical Decision Given the patient's presentation and exam findings, I did elect to perform the above-mentioned workup. The patient presents to the emergency department complaining of RIGHT lower quadrant abdominal pain and leg pain. She has no fever. She has no leukocytosis. She was found to have a significantly elevated blood sugar level and concerning findings for urinary tract infection. She has a distal obstructing ureteral stone. This combination certainly warrants intravenous antibiotics and further intervention or evaluation from a urologic standpoint at least. She was covered with intravenous antibiotics. Blood cultures are pending as are urine cultures. Her elevated blood glucose was aggressively managed in the emergency department and will certainly warrant continued management and education. The patient was admitted in stable condition. In the evaluation and treatment of this patient, the following differential diagnoses were considered: Appendicitis, Diverticulitis, Diverticulosis, Colitis , Ischemic Colitis, Inflammatory Bowel Disease, Irritable Bowel Disease, Ovarian Torsion, Kidney Stone, Pyelonephritis, Hydronephrosis, Cholecystitis, Ascending Cholangitis, Choledocholithiasis, GERD. Impression Primary Impression: Hydronephrosis with urinary obstruction due to ureteral calculus Additional Impressions: UTI (urinary tract infection) Hyperglycemia Elevated lipase Departure Information Dispostion Admitted as an inpatient Condition FAIR Prescriptions Nystatin (Topical) (NYAMYC) 100,000 Unit/Gm Pow 1 APPLN TOP BID for 7 Days, #30 GM Prov: Marleny Schaefer MD 05/16/16 Insulin Isophan/Regular (Novolin 70/30) Susp 30 UNITS SC BIDM for 30 Days, #1 BTL Prov: Marleny Schaefer MD 05/16/16 Tamsulosin HCl (Tamsulosin HCl) 0.4 Mg Cap 0.4 MG PO QAM for 3 Days, #10 CAP Take 1cap daily x3days. Then take daily PRN bladder pain. Prov: Marleny Schaefer MD 05/16/16 Cephalexin Monohydrate (Cephalexin) 500 Mg Cap 500 MG PO BID for 7 Days, #13 CAP Prov: Marleny Schaefer MD 05/16/16 Referrals Lani Andrade D.O. (PCP) Forms WORK / SCHOOL INSTRUCTIONS, HOME CARE DOCUMENTATION FORM, IMPORTANT VISIT INFORMATION Patient Instructions [facility] Problem Qualifiers Additional Impressions: UTI (urinary tract infection) Urinary tract infection type: site unspecified Hematuria presence: without hematuria Qualified Codes: N39.0 - Urinary tract infection, site not specified
--- NOTE | 2016-05-15 10:28 | Pharmacy Progress Note ---
Glycemic Control: Progress Nt Date of Service May 15, 2016. Scope Glycemic Pharmacist consulted by Luz Elena Colindres on 05/13/16 for glycemic control and to write orders per [facility] inpatient glycemic control protocol. Objective Accuchecks BSG (last 24hrs): Test 05/14/16 10:39 05/14/16 11:24 05/14/16 11:55 05/14/16 12:22 Bedside Glucose 395 mg/dl (70-90) 370 mg/dl (70-90) 393 mg/dl (70-90) Random Glucose 342 mg/dl (70-99) Test 05/14/16 14:36 05/14/16 16:39 05/14/16 20:42 05/15/16 01:24 Bedside Glucose 352 mg/dl (70-90) 252 mg/dl (70-90) 280 mg/dl (70-90) 317 mg/dl (70-90) Test 05/15/16 04:17 05/15/16 05:30 05/15/16 07:39 Bedside Glucose 336 mg/dl (70-90) 290 mg/dl (70-90) Random Glucose 305 mg/dl (70-99) Laboratory Data (last 24hrs) Test 05/14/16 11:55 05/15/16 05:30 Anion Gap 9.0 mmol/L 10.0 mmol/L BUN/Creatinine Ratio 8.7 8.3 Blood Urea Nitrogen 6 mg/dl 6 mg/dl Creatinine 0.74 mg/dl 0.76 mg/dl Potassium Level 3.3 mmol/L 3.8 mmol/L Sodium Level 137 mmol/L 142 mmol/L White Blood Count 6.22 K/uL HbA1c: Test 05/14/16 04:04 Hemoglobin A1c 13.6 % (4.5-5.6) H Recent Pertinent Medications Outpatient Anti-diabetic Regimen: * None - patient self-stopped all of her diabetes medications * A1c increased from 7.6% 11/2015 to 13.6% 05/14/16 The patient is currently receiving: * Basal insulin with LANTUS 12 units SQ BID starting 1/25 PM * Hold for BSG < 100 mg/dL * 1/2 dose for BSG 100-139 mg/dL * Correctional Insulin with NOVOLOG per scale ACHS or Q6hrs while NPO * Goal Range: Low 140 mg/dL - High 180 mg/dL * Correction Factor: 20 mg/dL/unit * Nutritional / Prandial insulin per carb ratio of 1 unit per 8 grams CHO consumed Risk Factors for Insulin Resistance: * Infection: UTI - on Zosyn * Diet: T2DM Assessment & Plan ASSESSMENT: * ADA & AACE recommend a goal blood sugar range 140-180 mg/dl for the majority of critically ill & non-critically ill patients. However, more stringent targets may be selected in individual cases. 05/14/16 * A1c increased significantly over the last 5 months 2nd patient self- discontinuing all diabetes medications. Estimated average BSG 344 mg/dL as an outpatient. Patient may experience symptoms of hypoglycemia even at higher BSG' s - will have high goal range. * Anion gap and CO2 wnl. BSG's maintained close to goal range of 250-350 mg/ dL. OK to transition off gtt at this time. * Will decrease goal range to 140-180 mg/dL * Will give Lantus slightly less than weight-based estimate x1 now * Will stop drip 2 hours after Lantus administration (if not already turned off based on BSG's) * Will start Novolog ACHS at lunch today - higher goal 2nd likely inability to tolerate lower BSG's. Slightly tighter than weight-based correction factor 2nd higher goal range. Weight-based carb ratio. * Bonny (RN) called - BSG's increasing 2nd patient eating [employer], [place] ice, etc. Novolog 19 units administered at lunch for BSG of 393 mg/dL. Counseled to re-check BSG in 2 hr * 2 hr re-check trending down, but not significantly. Insulin gtt off. Will give one-time IV bolus and re-check at dinner * Two additional overnight checks tonight 05/15/16 * Patient required a significant amount of Novolog correctional insulin overnight for BSG's > 300 mg/dL. BSG's still elevated this AM. * Will increase Lantus significantly for AM fasting BSG elevated to 290 mg/dL * Will tighten correction factor as overnight correction was inadequate to decrease BSG's significantly * Will also tighten carb ratio slightly as post-prandial BSG's yesterday were also elevated * Will maintain higher goal range as significantly tightened above * Lunch BSG still significantly elevated - will further tighten carb ratio PLAN FOR INPATIENT GLYCEMIC CONTROL: * Increase Basal insulin with LANTUS 18 units SQ BID * 1/2 dose for BSG < 120 mg/dL * Correctional Insulin with NOVOLOG per scale ACHS or Q6hrs while NPO - additional checks at 0000, 0400 * Goal Range: Low 140 mg/dL - High 180 mg/dL * Tighten Correction Factor: 15 mg/dL/unit * Tighten Nutritional / Prandial insulin per carb ratio of 1 unit per 6 grams CHO consumed Recommendations for outpatient management * Spoke w Suad (agricultural extension educator). Patient with complicated glycemic medication history * Lantus changed to Insulin 70/30 2nd cost issues * Insulin 70/30 changed to metformin+glimepiride 2nd occasional hypoglycemia as patient would skip meals at times * Metformin + glimepiride self-dc'd 2nd diarrhea * Due to above, patient's A1c increased significantly from 7.3 to 13.6% * Will plan on patient using insulin 70/30 as an outpatient. Suad talked w patient about appropriate eating habits / preventing hypoglycemia * Not ready at this time to make recommendation on dose as BSG's are still not well managed * Please note that the plan above was derived based on current level of insulin resistance and hospital stress. These recommendations are appropriate for inpatient admission only. Plan of care upon discharge will need to be reassessed to avoid potential outpatient hypo/hyperglycemia. Thank you.
[2016-05-15 11:24] VITALS: BP 131/65; PULSE 65; TEMP 36.5; O2SAT 96
[2016-05-15] MEDS: CEPHALEXIN MONOHYDRATE 500 MG CAP PO SCH ×2 (12:26→20:17)
[2016-05-15 14:53] VITALS: BP 145/72; PULSE 85; TEMP 36.6; O2SAT 95
[2016-05-15 15:10] VITALS: BMI 36.7
--- NOTE | 2016-05-15 17:58 | Progress Note ---
Medicine Progress Note Date & Time of Visit: May 15, 2016 at 17:55. Subjective Patient seen and examined. Still with episodic pain. Received Dilaudid overnight and this morning with improvement. Does not feel ready to go home today. Objective Last 8 Hrs Date Time Temp Pulse Resp B/P Pulse Ox O2 Delivery O2 Flow Rate FiO2 05/15/16 14:53 36.6 85 18 145/72 95 Room Air 05/15/16 11:24 36.5 65 16 131/65 96 Room Air Physical Exam: General-awake; alert; NAD Eyes-EOMI; no scleral icterus Neck-no stridor; trachea midline Lungs-CTA bilaterally; no wheezes/crackles Heart-RRR; no m/r/g Abdomen-mild RUQ tenderness to palpation; no guarding; soft; ND; nBS Back-no CVA tenderness Neuro-no gross focal deficits Laboratory Results: Last 24 Hours Test 05/14/16 20:42 05/15/16 01:24 05/15/16 04:17 05/15/16 05:30 Bedside Glucose 280 mg/dl 317 mg/dl 336 mg/dl White Blood Count 6.22 K/uL Red Blood Count 4.03 M/uL Hemoglobin 11.4 g/dL Hematocrit 34.5 % Mean Corpuscular Volume 85.6 fL Mean Corpuscular Hemoglobin 28.3 pg Mean Corpuscular Hemoglobin Concent 33.0 g/dl RDW Standard Deviation 46.4 fL RDW Coefficient of Variation 14.9 % Platelet Count 137 K/uL Mean Platelet Volume 9.8 fL Sodium Level 142 mmol/L Potassium Level 3.8 mmol/L Chloride Level 107 mmol/L Carbon Dioxide Level 25 mmol/L Anion Gap 10.0 mmol/L Blood Urea Nitrogen 6 mg/dl Creatinine 0.76 mg/dl Est Creatinine Clear Calc Drug Dose 87.9 ml/min Estimated GFR () 98.1 Estimated GFR (Non- 84.7 BUN/Creatinine Ratio 8.3 Random Glucose 305 mg/dl Calcium Level 8.3 mg/dl Beta-Hydroxybutyric Acid 2.23 mg/dL Test 05/15/16 07:39 05/15/16 11:34 05/15/16 16:32 Bedside Glucose 290 mg/dl 330 mg/dl 295 mg/dl Assessment & Plan RIGHT RENAL CALCULI - Urology consulted - no procedure planned at this time - continue Flomax, IVF - strain urine COMPLICATED UTI - s/p Rocephin in ED; continued with Zosyn - urine culture with E coli; resistant to fluoroquinolones - Zosyn changed to Keflex per culture results (plan for a 10 day course total) UNCONTROLLED TYPE 2 DM WITH SEVERE HYPERGLYCEMIA - patient self stopped diabetic meds last fall - hgb a1c 13.6 - glycemic pharmacy consulted - transitioned from insulin drip to insulin sq ELEVATED LIPASE - ? clinical significance - history and physical exam not consistent with pancreatitis - pancreas unremarkable on CT, LFTs WL - resolved HTN - low-normotensive - hold lisinopril HYPOTHYROIDISM - continue levothyroxine ROBINS'S ESOPHAGUS - continue H2 karan DYSLIPIDEMIA - continue statin DVT PROPHYLAXIS - SCDs Discharge planning: home Consultants: Urology Procedures: CT a/p 1. 5 mm distal right ureteral calculus with resultant mild to moderate right hydroureteronephrosis. Mildly delayed right nephrogram due to the obstruction. Wall thickening of the right ureter is likely due to the obstruction although a superimposed infectious process could appear similar. 2. Cirrhotic liver. Mild splenomegaly. 3. 2 cm right renal lesion. This measures just above water attenuation. This lesion is indeterminate although a cyst is favored. Current Inpatient Medications: Current Inpatient Medications Medications (Trade) Dose Ordered Sig/Alfonzo Route Start Time Stop Time Status Last Admin Dose Admin Ioversol (Optiray 320) 100 ml UD PRN IV 05/13/16 09:15 05/17/16 09:14 Glucose (Glucose 40% Gel) UD PRN PO 05/13/16 12:00 06/12/16 11:59 Glucose (Glucose Chew Tab) 1 tabs UD PRN PO 05/13/16 12:00 06/12/16 11:59 Dextrose (Dextrose 50% 50ML Syringe) 50 ml UD PRN IV 05/13/16 12:00 06/12/16 11:59 Glucagon (Glucagon Inj) 1 mg UD PRN SQ 05/13/16 12:00 06/12/16 11:59 Acetaminophen (Tylenol Tab) 650 mg Q4H PRN PO 05/13/16 13:00 06/12/16 12:59 05/14/16 08:54 650 MG Ondansetron HCl (Zofran Inj) 4 mg Q6H PRN IV 05/13/16 13:00 06/12/16 12:59 Tamsulosin HCl (Flomax Cap) 0.4 mg QAM PO 05/14/16 09:00 06/13/16 08:59 05/15/16 08:19 0.4 MG Aspirin (Ecotrin Tab) 162 mg QPM PO 05/13/16 21:00 06/12/16 20:59 05/14/16 20:31 162 MG Atorvastatin Calcium (Lipitor Tab) 80 mg DAILY PO 05/14/16 09:00 06/13/16 08:59 05/15/16 08:19 80 MG Clonazepam (Klonopin Tab) 0.5 mg TID PRN PO 05/13/16 13:15 06/12/16 13:14 Fluoxetine HCl (Prozac Cap) 40 mg DAILY PO 05/14/16 09:00 06/13/16 08:59 05/15/16 08:19 40 MG Levothyroxine Sodium (Synthroid Tab) 50 mcg DAILYBB PO 05/14/16 06:30 06/13/16 06:59 05/15/16 06:13 50 MCG Lisinopril (Zestril Tab) 10 mg DAILY PO 05/14/16 09:00 06/13/16 08:59 Future Hold 05/14/16 08:53 10 MG Trazodone HCl (Desyrel Tab) 50 mg HS PO 05/13/16 21:00 06/12/16 20:59 05/14/16 20:31 50 MG Ranitidine HCl (zANTac TAB) 300 mg HS PO 05/13/16 21:00 06/12/16 20:59 05/14/16 20:30 300 MG Miscellaneous Information (Consult Glycemic Management Pharmacy) 1 ea UD PRN N/A 05/13/16 14:45 06/12/16 14:44 Insulin Aspart SLIDING SCALE ACHS SC 05/14/16 12:00 06/13/16 11:59 05/15/16 12:23 16 UNITS Potassium Chloride/Sodium Chloride (1/2 Nss + 20meq KCl 1000ml) 1,000 ml @ 100 mls/hr Q10H IV 05/14/16 11:00 06/13/16 10:59 05/15/16 17:41 100 MLS/HR Potassium Chloride (Klor-Con Tab) 20 meq BID PO 05/14/16 09:30 06/13/16 09:29 05/15/16 08:19 20 MEQ Insulin Glargine (Lantus Solostar Pen) 9 UNITS FOR BSG < 120 MG... BID SC 05/14/16 21:00 06/13/16 20:59 05/15/16 08:26 18 UNIT Hydromorphone HCl (Dilaudid Inj) 0.5 mg Q2H PRN IV 05/14/16 20:30 05/28/16 20:29 05/15/16 06:20 0.5 MG Insulin Aspart (novoLOG ASPART) SLIDING SCALE TODAY@0000,0400 SC 05/16/16 00:00 05/16/16 04:01 Cephalexin Monohydrate (Keflex Cap) 500 mg BID PO 05/15/16 12:00 05/24/16 23:59 05/15/16 12:26 500 MG
[2016-05-15] MEDS ORDERED: FLUCONAZOLE 100 MG TAB PO ONE (18:30)
[2016-05-15] MEDS: ASPIRIN 81 MG ECTAB PO SCH (20:19)
[2016-05-15] MEDS: TRAZODONE HCL 50 MG TAB PO SCH (20:20)
[2016-05-15] MEDS: RANITIDINE HCL 150 MG TAB PO SCH (20:21)
[2016-05-16] VITALS: BP 144/73; PULSE 75; O2SAT 96
[2016-05-16] MEDS: INSULIN ASPART 100 UNITS/ML 3 ML PEN SC SCH ×3 (04:00→13:21)
[2016-05-16] MEDS: SODIUM CHLOR 0.45% + 20MEQ KCL 1,000 ML IV SCH ×2 (04:19→13:00)
[2016-05-16] MEDS: LEVOTHYROXINE 50 MCG TAB PO SCH (06:46)
[2016-05-16 07:51] VITALS: BP 160/83; PULSE 72; TEMP 37; O2SAT 95
[2016-05-16 08:00] VITALS: O2SAT 95
--- NOTE | 2016-05-16 08:02 | Progress Note ---
Subjective Date of Service: May 16, 2016. Subjective Pt evaluation today including: conversation w/ patient, physical exam, chart review, lab review Voiding: no voiding problems Nop pain since yesterday morning. Nurses finding crystals when straining urine. on abt for uti Review of Systems Constitutional: + fatigue, No chills, No fever, No sweats Respiratory: No cough, No shortness of breath Abdomen: No nausea, No vomiting Female : + urinary frequency, No dysuria Objective Vital Signs Date Time Temp Pulse Resp B/P Pulse Ox O2 Delivery O2 Flow Rate FiO2 05/16/16 07:51 37.0 72 20 160/83 95 Room Air 05/16/16 00:00 Room Air 05/16/16 00:00 75 18 144/73 96 CPAP 05/15/16 19:00 Room Air 05/15/16 14:53 36.6 85 18 145/72 95 Room Air 05/15/16 11:24 36.5 65 16 131/65 96 Room Air 05/15/16 08:30 Room Air Physical Exam General Appearance: WD/WN, no apparent distress, + obese ENT: hearing grossly normal Neurologic/Psychiatric: alert, normal mood/affect, oriented x 3 Laboratory Results Last 24 Hours Test 05/15/16 11:34 05/15/16 16:32 05/15/16 20:18 05/15/16 23:35 Bedside Glucose 330 mg/dl 295 mg/dl 290 mg/dl 211 mg/dl Test 05/16/16 04:05 05/16/16 07:35 Bedside Glucose 275 mg/dl Assessment and Plan distal ureteral stone seems to have passed it clinically ok for discharge will see her in office 3-4 weeks and if any symptoms still persisting at that time consider a bladder ultrasound in the office. Suggest flomax for 3 more days then prn pain oral pain meds prn push big glass of water with a splash of lemon juice 4 times per day Discharge planning: home
[2016-05-16] MEDS: CEPHALEXIN MONOHYDRATE 500 MG CAP PO SCH (08:14)
[2016-05-16] MEDS: TAMSULOSIN HCL 0.4 MG CAP PO SCH (08:14)
[2016-05-16] MEDS: POTASSIUM CHLORIDE 20 MEQ TABCR PO SCH (08:14)
[2016-05-16] MEDS: ATORVASTATIN 40 MG TAB PO SCH (08:14)
[2016-05-16 08:18] LABS: BUN/CREATININE RATIO 6.9 (10-20); CALCIUM 9.4 mg/dl (8.5-10.1); CREATININE 0.74 mg/dl (0.60-1.20); POTASSIUM 4.1 mmol/L (3.5-5.1)
[2016-05-16] MEDS: FLUOXETINE HCL 20 MG CAP PO SCH (08:44)
[2016-05-16] MEDS: INSULIN GLARGINE SOLOSTAR 100 UNITS/ML 3 ML PEN SC SCH (08:50)
--- NOTE | 2016-05-16 12:25 | Discharge Instructions ---
Discharge Instructions Admission Reason for Admission: Hyperglycemia, Renal Calculi Discharge Discharge Diagnosis / Problem: Right renal calculi, Uncontrolled Type 2 Diabetes Mellitus Discharge Goals Goal(s): Decrease discomfort, Improve disease control Activity Recommendations Activity Limitations: resume your previous activity . Instructions / Follow-Up Instructions / Follow-Up Please keep your scheduled follow up appointment with Family Medicine Dr. Andrade on May 24 at 10:40am. Kierra, from the diabetes management clinic, will call you on Friday to follow up your sugars and insulin regimen. Please call [phone] to schedule an appointment with Urology Dr. Perez in 2-3 weeks. Please take Novolin 70/30 insulin, 30units with breakfast and 30units with dinner. Please be sure to eat a bedtime snack. If your sugars are consistently running in the upper 300's to 400's, you may take an additional 10 units of insulin with your next dose, either breakfast or dinner, for a total of 40units for that meal. Please then call either Kierra or Dr. Andrade for further instructions. Current Hospital Diet Patient's current hospital diet: Diabetes Type 2 Diet Discharge Diet Recommended Diet: Diabetes Type 2 Diet Pending Studies Studies pending at discharge: no Laboratory Results Hemoglobin A1c Test 05/14/16 04:04 Range/Units Estimated Average Glucose 344 mg/dl Hemoglobin A1c 13.6 H 4.5-5.6 % Medical Emergencies . Who to Call and When: Medical Emergencies: If at any time you feel your situation is an emergency, please call 911 immediately. . Non-Emergent Contact Non-Emergency issues call your: Primary Care Provider . . "Provider Documentation" section prepared by Marleny Cutler. VTE Core Measure Inpt VTE Proph given/why not?: SCD's
[2016-05-16] MEDS ORDERED: NYST100016 TOP (13:28)
[2016-05-16] MEDS ORDERED: FLM4 PO (13:28)
[2016-05-16] MEDS ORDERED: INSU70IN2 SC (13:28)
[2016-05-16] MEDS ORDERED: KFL500 PO (13:28)
[2016-05-16 13:55] VITALS: BP 160/83; PULSE 72; TEMP 37; O2SAT 95
--- NOTE | 2016-05-16 20:08 | Discharge Summary ---
Discharge Summary Admission Date: May 13, 2016 at 12:50 Discharge Date: May 16, 2016 Discharge Disposition: Home Principal Diagnosis: Right ureteral stone Secondary Diagnoses/Problems: Uncontrolled type 2 diabetes Procedures: CT a/p 1. 5 mm distal right ureteral calculus with resultant mild to moderate right hydroureteronephrosis. Mildly delayed right nephrogram due to the obstruction. Wall thickening of the right ureter is likely due to the obstruction although a superimposed infectious process could appear similar. 2. Cirrhotic liver. Mild splenomegaly. 3. 2 cm right renal lesion. This measures just above water attenuation. This lesion is indeterminate although a cyst is favored. Consultations: Urology Medication Reconciliation New Medications: Insulin Isophan/Regular (Novolin 70/30) Susp 30 UNITS SC BIDM for 30 Days, #1 BTL Nystatin (Topical) (Nyamyc) 100,000 Unit/Gm Pow 1 APPLN TOP BID for 7 Days, #30 GM Cephalexin Monohydrate (Cephalexin) 500 Mg Cap 500 MG PO BID for 7 Days, #13 CAP Tamsulosin HCl (Tamsulosin HCl) 0.4 Mg Cap 0.4 MG PO QAM for 3 Days, #10 CAP Take 1cap daily x3days. Then take daily PRN bladder pain. Continued Medications: Aspirin Enteric Coated (Ecotrin Or Generic) 81 Mg Tab 162 MG PO QPM, 0 Refills Atorvastatin Calcium (Lipitor) 80 Mg Tab 80 MG PO DAILY, TAB Clonazepam (Klonopin) 0.5 Mg Tab 0.5 MG PO TID PRN for Anxiety/Agitation, TAB Cyclobenzaprine Hcl (Flexeril) 5 Mg Tab 1 TAB PO BID PRN for prn for 30 Days, #30 TAB Fluoxetine (Prozac) 20 Mg Cap 40 MG PO DAILY Levothyroxine Sodium (Levothyroxine Sodium) 50 Mcg Tab 50 MCG PO DAILY, #90 Lisinopril (Zestril) 10 Mg Tab 10 MG PO DAILY, TAB Ranitidine Hcl (Zantac) 300 Mg Tab 300 MG PO HS, #90 Trazodone Hcl (Trazodone) 50 Mg Tab 50 MG PO HS, TAB Admission Information HPI (per Admitting provider): 60 year old female who presents to the ER with RLQ abdominal pain. Patient reports she has had the pain for the past several weeks however it has been increasing in frequency and intensity over the past few days. She has had intermittent nausea with dry heaving. No vomiting. Several months ago patient was having diarrhea and she self stopped her diabetic medications as she felt it was causing the diarrhea. Since stopping the medicines, diarrhea has resolved. She denies fever and chills. No dysuria or hematuria. She denies chest pain and shortness of breath. No lightheadedness, dizziness, diaphoresis, or syncopal events. In the ER, patient underwent a CT abd/pelvis that showed 5mm distal right ureteral calculi. Glucose is found to be 766 and lipase is 761. Remainder of her labs are unremarkable. Vitas are stable. Patient was treated with IVF, Rocephin, and started in insulin drip. She was also given Dilaudid and Zofran. Physical Exam (per Admitting): General Appearance: no apparent distress Head: normocephalic Eyes: normal inspection, PERRL, EOMI ENT: hearing grossly normal Neck: supple, no JVD Respiratory/Chest: no respiratory distress, + decreased breath sounds Cardiovascular: regular rate, rhythm, no edema, normal peripheral pulses Abdomen/GI: normal bowel sounds, soft, + tenderness (generalized, more pronounced in RLQ) Extremities/Musculoskelatal: normal inspection, no calf tenderness Neurologic/Psych: no motor/sensory deficits, alert, normal mood/affect, oriented x 3 Skin: normal color, warm/dry Hospital Course Patient was admitted with right ureteral stone noted on admission CT a/p. Urology was consulted and did not recommend any procedure. Patient was started on Flomax and IVF's. Patient's pain improved. Urinalysis was dirty on admission and urine culture grew E coli, resistant to fluoroquinolones. Patient was discharged to complete a 10 day course of Keflex. On admission, glucose was in the 500's and A1c was 13.6. Patient had stopped all of her diabetes medications in the fall due to various side effects. Patient was started on an insulin drip and was transitioned to sq insulin. Glycemic pharmacy was consulted. The decision was made to discharge patient on Novolin 70/30, 30units BID-meals; this insulin was chosen based upon insurance coverage; patient's previous dose of Novolin was 28units BID and patient had reported hypoglycemic episodes therefore decision was made to be cautious with initial outpatient dosing on discharge. Outpatient diabetes pharmacist was notified of patient's discharge and will follow up with patient on Friday. Patient was given nystatin powder for candidiasis in the groin. Patient was continued on the remainder of her home medications. Patient deemed stable for discharge with Family Medicine, Urology and diabetes pharmacy follow up. PE on discharge: General- awake; alert; NAD Eyes- EOMI; no scleral icterus Neck- no stridor; trachea midline Lungs- CTA bilaterally; no wheezes/crackles Heart- RRR; no m/r/g Abdomen- soft; mild RLQ tenderness to palpation; ND; nBS Back- no CVA tenderness Extremities- no c/c/e; no deformity Neuro- no gross focal deficits Skin- no appreciable rash or bruise . Total time spent on discharge = This includes examination of the patient, discharge planning, medication reconciliation, and communication with other providers. Discharge Instructions Discharge Instructions Admission Reason for Admission: Hyperglycemia, Renal Calculi Discharge Discharge Diagnosis / Problem: Right renal calculi, Uncontrolled Type 2 Diabetes Mellitus Discharge Goals Goal(s): Decrease discomfort, Improve disease control Activity Recommendations Activity Limitations: resume your previous activity . Instructions / Follow-Up Instructions / Follow-Up Please keep your scheduled follow up appointment with Family Medicine Dr. Andrade on May 24 at 10:40am. Kierra, from the diabetes management clinic, will call you on Friday to follow up your sugars and insulin regimen. Please call [phone] to schedule an appointment with Urology Dr. Perez in 2-3 weeks. Please take Novolin 70/30 insulin, 30units with breakfast and 30units with dinner. Please be sure to eat a bedtime snack. If your sugars are consistently running in the upper 300's to 400's, you may take an additional 10 units of insulin with your next dose, either breakfast or dinner, for a total of 40units for that meal. Please then call either Kierra or Dr. Andrade for further instructions. Current Hospital Diet Patient's current hospital diet: Diabetes Type 2 Diet Discharge Diet Recommended Diet: Diabetes Type 2 Diet Pending Studies Studies pending at discharge: no Laboratory Results Hemoglobin A1c Test 05/14/16 04:04 Range/Units Estimated Average Glucose 344 mg/dl Hemoglobin A1c 13.6 H 4.5-5.6 % Medical Emergencies . Who to Call and When: Medical Emergencies: If at any time you feel your situation is an emergency, please call 911 immediately. . Non-Emergent Contact Non-Emergency issues call your: Primary Care Provider . . "Provider Documentation" section prepared by Marleny Cutler. VTE Core Measure Inpt VTE Proph given/why not?: SCD's Additional Copies To Lani Andrade D.O.
[2016-05-29 12:00] VITALS: Ht 162.6 cm; Wt 97.0 kg
[2016-08-22] MEDS ORDERED: B-COTAB18 PO (09:15)
[2016-08-22] MEDS ORDERED: ASPCH81X PO (09:15)
[2016-08-22] MEDS ORDERED: MULT-506 PO (09:15)
[2016-08-22] MEDS ORDERED: INSU70IN2 SC (09:15)
[2016-08-22] MEDS ORDERED: CLON0.5T3 PO (09:15)
[2016-08-22] MEDS ORDERED: CYCL10TA6 PO (09:15)
[2016-08-22] MEDS ORDERED: FLUO40CA8 PO (09:15)
[2016-08-27] MEDS ORDERED: HYDR-5688 PO (08:20)
[2016-09-26] MEDS ORDERED: CEPH500C2 PO (06:14)
[2016-09-26] MEDS ORDERED: OXYC-57 PO (06:14)
== END 2016-05-16 14:55 | disposition home or self-care (01) | DRG 694 ==
LOC: ENRESERVDT → CANRESERV → ENRESERVTM → C.EDB 08:44 → C.MED 12:50 → C.MS4W 05-15 19:07
PROVIDERS: ADMIT Internal Medicine; ATTEND Internal Medicine
DX: N13.2 Hydronephrosis with renal and ureteral calculous obstruction (principal); N39.0 Urinary tract infection, site not specified; K22.70 Barrett's esophagus without dysplasia; E11.65 Type 2 diabetes mellitus with hyperglycemia; E78.5 Hyperlipidemia, unspecified; E03.9 Hypothyroidism, unspecified; K75.81 Nonalcoholic steatohepatitis (NASH); G47.33 Obstructive sleep apnea (adult) (pediatric); F17.210 Nicotine dependence, cigarettes, uncomplicated; M79.7 Fibromyalgia; J44.9 Chronic obstructive pulmonary disease, unspecified; I10 Essential (primary) hypertension; Z91.14 Patient's other noncompliance with medication regimen; B96.20 Unspecified Escherichia coli [E. coli] as the cause of diseases classified elsewhere; Z85.3 Personal history of malignant neoplasm of breast; K74.60 Unspecified cirrhosis of liver

== ENCOUNTER → 2016-07-15 | Outpatient (CLI) | payer OTHER ==
[~2016-07-15] MED LIST changes: -AMR2 PO; +ASPCH81X PO; +ASPI81TA21 PO; +ATOR80TA PO; +B-COTAB18 PO; -BUPR75TA20 PO; +CEPH500C2 PO; +CLON0.5T3 PO; +CYCL10TA6 PO; +CYCL5TAB PO; +FLM4 PO; +FLUO20CA35 PO; +FLUO40CA8 PO; +GADAVIST IV PRN; -GLC500 PO; +HYDR-4380 PO; +HYDR-5688 PO; +INSU70IN2 SC; +KFL500 PO; +LEVO50TA6 PO; +LISI-461 PO; +MULT-506 PO; +NYST100016 TOP; -OMEP20TA PO; -ONDA4TAB4 PO; +OXYC-57 PO; +RANI300T PO; +TRAZ50TA35 PO
--- NOTE | 2016-07-15 11:31 | DIAGNOSTIC IMAGING REPORT ---
MRI OF THE PELVIS COMBO CLINICAL HISTORY: Pelvic cramping. COMPARISON STUDY: Pelvic CT dated 05/13/2016. TECHNIQUE: MRI of the pelvis is performed utilizing various T1 and T2-weighted sequences in the axial, sagittal, and coronal planes. Contrast-enhanced sequences were acquired following the IV administration of 10 cc of Gadavist. The examination is degraded by large body habitus, open MRI technique, and by motion artifact. FINDINGS: The bladder is normal as visualized. The uterus is normal in size, measuring 7.4 cm in length. The endometrial stripe is normal in thickness for age, measuring up to 3 mm. The uterus is slightly heterogeneous in signal intensity. The ovaries are normal as visualized. There is no free fluid in the cul-de-sac. There is no pelvic sidewall or inguinal lymphadenopathy. The visualized bowel loops are normal in caliber. The iliac vessels appear patent. There is diffuse and symmetric atrophy of the pelvic musculature. The bony pelvis appears intact. No destructive bony lesion is identified. The lower lumbar spinal canal is patent. IMPRESSION: No significant abnormality. See above. Dictated: 07/15/2016 10:20 AM Transcribed: 07/15/2016 11:30 AM Noman Electronically signed by: Hunter Moore M.D. 07/15/2016 11:37 AM Dictated Date/Time: 07/15/2016 10:20 AM
== END | disposition home or self-care (01) ==
LOC: C.OPENMRI 08:42
PROVIDERS: ATTEND Student in an Organized Health Care Education/Training Program
DX: R10.2 Pelvic and perineal pain (principal)

== ENCOUNTER → 2016-08-01 | Outpatient (CLI) | payer OTHER ==
[~2016-08-01] MED LIST changes: +EFF/375 PO; -GADAVIST IV PRN
--- NOTE | 2016-08-02 12:36 | MAMMOGRAPHY REPORT ---
BILATERAL DIGITAL SCREENING MAMMOGRAM TOMOSYNTHESIS WITH CAD: 08/01/2016 CLINICAL HISTORY: Asymptomatic. Personal history of breast cancer. TECHNIQUE: Breast tomosynthesis in addition to standard 2D mammography was performed. Current study was also evaluated with a Computer Aided Detection (CAD) system. COMPARISON: Comparison is made to exams dated: 01/02/2015 mammogram, 12/30/2013 mammogram, 12/29/2012 mammogram, 12/25/2011 mammogram, 06/11/2010 mammogram, and 06/08/2009 mammogram - [facility]. BREAST COMPOSITION: There are scattered areas of fibroglandular density in both breasts. FINDINGS: There are stable post surgical changes in the right upper outer quadrant from prior lumpe ctomy, including stable density, architectural distortion, surgical clips, and benign sutural calcif ications at the lumpectomy bed. Again noted are regional coarse heterogeneous calcifications predom inantly within the right upper outer quadrant, which were previously biopsied in 2013 with pathology showing benign findings. A biopsy marker clip from stereotactic biopsy is seen within the right up per outer quadrant. There is skin thickening noted within the right lower inner quadrant, which rona ears more prominent compared to prior exams. While this may be related to technical factors, recomm end additional imaging evaluation with additional mammographic views and possibly breast ultrasound. The remainder of both breasts are stable compared to prior exams, without suspicious masses, calcifi cations, or areas of architectural distortion noted. IMPRESSION: ACR BI-RADS CATEGORY 0: INCOMPLETE EVALUATION: NEED ADDITIONAL IMAGING EVALUATION Increased skin thickening in the right lower inner quadrant, for which additional imaging evaluation is recommended. The patient will be called to schedule an appointment. Approximately 10% of breast cancers are not detected with mammography. A negative mammographic repor t should not delay biopsy if a clinically suggestive mass is present. Shari Martins M.D. /:08/01/2016 16:53:50 Splicing Supervisor: Mariangel MCKEON)([place]), [facility] letter sent: Addl Imaging 0 BI-RADS Code: ACR BI-RADS Category 0: Incomplete Evaluation: Need Additional Imaging Evaluation
== END | disposition home or self-care (01) ==
LOC: C.MAMM 11:28
PROVIDERS: ATTEND Student in an Organized Health Care Education/Training Program
DX: Z12.31 Encounter for screening mammogram for malignant neoplasm of breast (principal); R92.8 Other abnormal and inconclusive findings on diagnostic imaging of breast; Z85.3 Personal history of malignant neoplasm of breast

== ENCOUNTER → 2016-08-14 | Outpatient (CLI) | payer OTHER ==
--- NOTE | 2016-08-14 14:35 | MAMMOGRAPHY REPORT ---
THIS REPORT HAS BEEN AMENDED. AMENDMENT: 10/02/2016 Alexa Rich M.D. Pathology results from a skin biopsy in the 3:00 right breast yielding atypical vascular proliferatio n. Upon reexcision, and old biopsy site with foreign body giant cell reaction was seen as well as fa t necrosis. However, no residual lesion was seen on the additional specimen. Given that the atypica l vascular proliferation explains the skin thickening, I do not think it is necessary to re-biopsy th e clustered microcalcifications that are within the right breast. The prior biopsy yielded many calc ifications within the specimen and the pathology results were benign, fat necrosis. Therefore, would recommend imaging follow-up at time of next screening exam. Amended BI-RADS: n/a ULTRASOUND OF RIGHT BREAST: 08/14/2016 CLINICAL HISTORY: 60-year-old woman with a personal history of right breast cancer diagnosed in 2002. She is status post breast conservation therapy. A fine-needle aspiration performed along the surgi thu scar in 2006 yielded atypical cells. Stereotactic biopsy of pleomorphic microcalcifications in t he right breast performed in 2013 yielded benign breast tissue and scattered foci of fat necrosis. P rhina was called back from screening mammography for increased skin thickening of the right breast m ost prominent in the lower inner quadrant. Also noted are increase in the pleomorphic microcalcifica tions occupying most of the right upper outer quadrant. COMPARISON: Comparison is made to exams dated: 08/01/2016 mammogram, 01/02/2015 mammogram, 01/17/2014 m ammogram, 01/17/2014 stereotactic biopsy, 01/03/2014 ultrasound, and 01/03/2014 mammogram - [facility]. FINDINGS: Real-time high-resolution sonographic evaluation was performed throughout the right breast in all 4 quadrants to assess the breast parenchyma and also skin thickness. There is mild skin thic kening of the right breast most prominent in the 3:00 through 6:00 axes, measuring up to 4.3 mm in th ickness. Skin thickness in the 9:00 right breast is 1.3 mm. A few echogenic shadowing foci are scat tered in the right upper outer quadrant which most likely represent the microcalcifications seen mamm ographically. There is no evidence of a solid suspicious mass on ultrasound. IMPRESSION: ACR BI-RADS CATEGORY 4: SUSPICIOUS - FOLLOW-UP RECOMMENDED 1. There is increasing skin thickening of the right breast, most prominent in the lower inner quadra nt, measuring up to 4.3 mm in thickness. Given the interval change comparing to prior mammograms and also the patient reports mild right breast tenderness, recommend surgical consultation for a surgica l skin punch biopsy. 2. Pending skin biopsy results, would also consider repeat stereotactic biopsy of the pleomorphic mi crocalcifications throughout the right upper outer quadrant that continue to increase. These results and recommendations were discussed with the patient at the time of the exam. Alexa Rich M.D. ay/:08/14/2016 09:42:25 Supervisor Car Installations: Dr. Alexa Rich, [facility] letter sent: Abnormal 4/5 BI-RADS Code: ACR BI-RADS Category 4: Suspicious
== END | disposition home or self-care (01) ==
LOC: C.MAMM 08:58
PROVIDERS: ATTEND Student in an Organized Health Care Education/Training Program
DX: N64.59 Other signs and symptoms in breast (principal)

== ENCOUNTER → 2016-08-27 | Day surgery (SDC) | payer OTHER ==
[2016-08-22 09:16] VITALS: Ht 162.6 cm; Wt 105.0 kg
[~2016-08-27] VITALS: Ht 162.6 cm; Wt 105.0 kg
[~2016-08-27] MED LIST changes: -ASPI81TA21 PO; +CEFAZOLIN 2000 MG/60 ML D5W IV SCH; -CYCL5TAB PO; +DEXAMETHASONE SOD INJ 4 MG/ML VIAL ONE; +FENTANYL CITRATE INJ 50 MCG/1 ML 2 ML VIAL ONE; -FLM4 PO; -FLUO20CA35 PO; +HYDROCODONE/ACETAMOPHEN 5/325MG TAB PO PRN; -KFL500 PO; +LACTATED RINGER'S 1000ML 1,000 ML IV SCH; +LIDOCAINE HCL 1% 20 ML VIAL ONE; +LIDOCAINE HCL 2% 2 ML VIAL (20MG/ML) ONE; +MIDAZOLAM HCL 1 MG/ML 2ML VIAL ONE; -NYST100016 TOP; +ONDANSETRON INJ 2 MG/ML 2 ML VIAL ONE; +PROPOFOL IV EMULSION 10 MG/ML 20 ML VIAL IV ONE; +SODIUM CHLORIDE 0.9% 1000ML 1,000 ML IV SCH; -TRAZ50TA35 PO
--- NOTE | 2016-08-27 08:18 | History & Physical Bridge - SC ---
H&P Re-Evaluation Bridge Note: I have examined the patient, reviewed the History & Physical and in the interval since the performance of the History & Physical I have noted the following changes of clinical significance: No changes noted
--- NOTE | 2016-08-27 08:22 | Discharge Instructions-SurgCtr ---
Discharge Instructions Date of Service August 27, 2016. Visit Reason for Visit: Breast Disorder; Hx Of Breast Ca Discharge Discharge Diagnosis / Problem: abnormal mammo Rt breast Discharge Goals Goal(s): Decrease discomfort, Improve function, Improve disease control Activity Recommendations Activity Limitations: as noted below Lifting Limitations: gradually increase as tolerated Exercise/Sports Limitations: until after follow-up appointment May Resume Sexual Activity: when tolerated Shower/Bathe: keep incision dry (may shower over incision on 08/29) Driving or Machine Use: resume 1 day after discharge SPECIAL CARE INSTRUCTIONS: * Cover incisions and change daily for comfort/drainage. * Leave steri strips in place * May use ibuprofen for pain as tolerated. * Expect some swelling and bruising. Call your doctor if: * Temperature above 101 degrees * Pain not relieved by pain medicine ordered * There is increased drainage or redness from any incision * You have any unanswered questions or concerns [phone]. FOLLOW UP VISIT: If not already scheduled, please call the office for a follow-up visit. for 2 weeks- checkup- no sutures to remove OFFICE PHONE NUMBER: Dr. Fields Office Anesthesia . Post Anesthesia Instructions: If you have had General Anesthesia or IV Sedation: * Do not drive today. * Resume driving when surgeon permits. * Do not make important decisions or sign legal documents today. * Call surgeon for: 1. Temperature elevations greater than 101 degrees F. 2. Uncontrollable pain. 3. Excessive bleeding. 4. Persistent nausea and vomiting. 5. Medication intolerance (nausea, vomiting or rash). * For nausea and vomiting use only clear liquids such as: tea, soda, bouillon until nausea subsides, then gradually increase diet as tolerated. * If you have any concerns or questions, call your surgeon's office. If physician is unavailable and it is an emergency, call 911 or go to the nearest emergency room. . Diet Recommendations Home Diet: resume previous diet Pending Studies Studies pending at discharge: no Medical Emergencies . Who to Call and When: Medical Emergencies: If at any time you feel your situation is an emergency, please call 911 immediately. . Non-Emergent Contact Non-Emergency issues call your: Primary Care Provider, Surgeon . . "Provider Documentation" section prepared by Kayden Fields. .
[2016-08-27 09:30] VITALS: TEMP 36.6
--- NOTE | 2016-08-27 09:31 | [facility] Post Operative Brief Note ---
Immediate Operative Summary Operative Date August 27, 2016. Pre-Operative Diagnosis Right Breast Disorder, History of Right Breast CA Post-Operative Diagnosis Same Procedure(s) Performed Right Breast Biopsy Surgeon Dr. Fields Field Marketing Specialist Surgeon(s) None Estimated Blood Loss 10 ml Findings thickened skin Specimens A. Right Breast Tissue Anesthesia local/ sedation Complication(s) None Disposition Recovery Room / PACU
--- NOTE | 2016-08-27 09:42 | OPERATIVE REPORT ---
DATE OF OPERATION: 08/27/2016 NAME OF OPERATION: Right breast biopsy. PREOPERATIVE DIAGNOSIS: Abnormal mammogram, right breast. POSTOPERATIVE DIAGNOSIS: Same. STAFF SURGEON: Dr. Fields. ANESTHESIA: 1% plain lidocaine with sedation. PROCEDURE: The patient was brought in the operating room and placed on the operating table in supine position. Her right breast had been marked at the breast center in an area at approximately 3-4 o'clock of thickened skin. At this 0.1% plain lidocaine was used to anesthetize the skin and subcutaneous tissue. Elliptical incision was made in this area approximately 3 cm in length, excising the skin and subcutaneous tissue and sending it for routine pathology. After appropriate hemostasis, the deep tissue was reapproximated using 2-0 plain catgut suture then the skin reapproximated using subcuticular 4-0 Monocryl and Steri-Strips. Dressing applied and patient transferred to recovery room in stable condition. I attest to the content of the Intraoperative Record and any orders documented therein. Any exceptio ns are noted below.
[2016-08-27 09:52] VITALS: BP 105/68; PULSE 70; O2SAT 95
--- NOTE | 2016-08-27 09:56 | Anesthesia Progress Nt - [facility] ---
Anesthesia Post Op Note Date & Time August 27, 2016 at 09:57 Vital Signs Pain Intensity: 0 Vital Signs Past 12 Hours Date Time Temp Pulse Resp B/P Pulse Ox O2 Delivery O2 Flow Rate FiO2 08/27/16 09:52 70 18 105/68 95 Room Air 08/27/16 09:30 36.6 76 16 113/69 96 Room Air 08/27/16 07:29 37.0 73 20 111/68 97 Room Air Notes Mental Status: alert / awake / arousable, participated in evaluation Pt Amnestic to Procedure: Yes Nausea / Vomiting: adequately controlled Pain: adequately controlled Airway Patency, RR, SpO2: stable & adequate BP & HR: stable & adequate Hydration State: stable & adequate Anesthetic Complications: no major complications apparent Pt doing very well.
--- NOTE | 2016-08-27 12:50 | MAMMOGRAPHY REPORT ---
ULTRASOUND OF RIGHT BREAST: 08/27/2016 CLINICAL HISTORY: Preoperative skin marking for most prominent focal skin thickening of the right br east. COMPARISON: Comparison is made to exams dated: 08/14/2016 ultrasound, 08/01/2016 mammogram, 01/02/2015 mammogram, 01/17/2014 mammogram, 01/17/2014 stereotactic biopsy, and 01/03/2014 ultrasound - [facility]. FINDINGS: Targeted ultrasound was performed in the lower inner quadrant of the right breast to asse ss for the most prominent area of skin thickening. In the 3:00 axis, there is focal skin thickening measuring up to 4.6 mm. In the 6:00 right breast, there was skin thickening measuring up to 2.6 mm . Therefore, an annotation was made on the in the 3:00 axis denoting the area of most prominent thi ckening. The patient was transferred to the operating room in satisfactory condition. IMPRESSION: Status post marking of the most prominent area of skin thickening in the 3:00 right breast. Alexa Rich M.D. ay/:08/27/2016 08:18:48 Weasand Trimmer: Anika MCCORMACK(Thierry)([place]), [facility] BI-RADS Code: n/a
== END | disposition home or self-care (01) ==
LOC: X.SURG 07:14
PROVIDERS: ATTEND Surgery
DX: N64.9 Disorder of breast, unspecified (principal); K22.70 Barrett's esophagus without dysplasia; F32.9 Major depressive disorder, single episode, unspecified; E11.9 Type 2 diabetes mellitus without complications; M79.7 Fibromyalgia; I10 Essential (primary) hypertension; G47.30 Sleep apnea, unspecified; Z90.49 Acquired absence of other specified parts of digestive tract; Z83.3 Family history of diabetes mellitus; Z82.49 Family history of ischemic heart disease and other diseases of the circulatory system; Z80.1 Family history of malignant neoplasm of trachea, bronchus and lung; Z83.49 Family history of other endocrine, nutritional and metabolic diseases

== ENCOUNTER 2016-09-25 07:12 | Inpatient (IN) | payer OTHER ==
[2016-09-23 12:03] VITALS: BMI 40.0
[2016-09-25] VITALS (8 sets, daily range): BP systolic 108–139; BP diastolic 55–73; PULSE 84–106; TEMP 36.7–36.8; O2SAT 93–96; Ht 162.6 cm; Wt 105.0 kg
[~2016-09-25] VITALS: Ht 162.6 cm; Wt 105.0 kg
[~2016-09-25 07:12] MED LIST changes: -CEPH500C2 PO; +CIPROFLOXACIN / D5W 400 MG IV SCH; -DEXAMETHASONE SOD INJ 4 MG/ML VIAL ONE; -EFF/375 PO; -FENTANYL CITRATE INJ 50 MCG/1 ML 2 ML VIAL ONE; -HYDR-4380 PO; -HYDR-5688 PO; -HYDROCODONE/ACETAMOPHEN 5/325MG TAB PO PRN; -LIDOCAINE HCL 1% 20 ML VIAL ONE; -LIDOCAINE HCL 2% 2 ML VIAL (20MG/ML) ONE; -MIDAZOLAM HCL 1 MG/ML 2ML VIAL ONE; -ONDANSETRON INJ 2 MG/ML 2 ML VIAL ONE; -OXYC-57 PO; -PROPOFOL IV EMULSION 10 MG/ML 20 ML VIAL IV ONE; -SODIUM CHLORIDE 0.9% 1000ML 1,000 ML IV SCH
[2016-09-25] MEDS ORDERED: MIDAZOLAM HCL 1 MG/ML 2ML VIAL ONE (07:44)
[2016-09-25] MEDS ORDERED: FENTANYL CITRATE INJ 50 MCG/1 ML 2 ML VIAL ONE (07:44)
[2016-09-25] MEDS ORDERED: BUPIVACAINE 0.5 % 5 MG/1 ML MPF 30ML VIAL ONE (09:49)
--- NOTE | 2016-09-25 11:41 | [facility] Post Operative Brief Note ---
Immediate Operative Summary Operative Date Sep 25, 2016. Pre-Operative Diagnosis Right breast disorder; Benign right breast neoplasm Post-Operative Diagnosis Same as preop Procedure(s) Performed Right breast mastectomy Surgeon Dr. Fields Director Of Epidemiology Surgeon(s) Nicole Cardenas PA-C Estimated Blood Loss 20 cc Findings Rt breast tissue Specimens A: right breast- silk stitch lateral Drains #19and#[id number] Rd JPs Anesthesia gen Complication(s) None Disposition Recovery Room / PACU
[2016-09-25] MEDS ORDERED: HYDROmorphone INJ 1 MG/ML SYR IV PRN ×2 (11:45→12:45)
[2016-09-25] MEDS ORDERED: ONDANSETRON INJ 2 MG/ML 2 ML VIAL IV PRN ×2 (11:45→12:45)
[2016-09-25] MEDS ORDERED: HYDROCODONE/ACETAMOPHEN 5/325MG TAB PO PRN ×2 (11:45)
[2016-09-25] MEDS ORDERED: PROMETHAZINE HCL INJ 25 MG in SODIUM CHLORIDE 0.9% 50ML 50 ML IV PRN (11:45)
--- NOTE | 2016-09-25 12:02 | OPERATIVE REPORT ---
DATE OF OPERATION: 09/25/2016 PREOPERATIVE DIAGNOSIS: Atypical angioproliferation of the right breast. POSTOPERATIVE DIAGNOSIS: Same. NAME OF OPERATION: Right mastectomy. STAFF SURGEON: Dr. Fields. HORSE SHOER: Leandro Fitzpatrick PA-C. ANESTHESIA: General. OPERATION AND FINDINGS: PROCEDURE: The patient was brought in the operating room and placed on the operating table in supine position. Her right chest was then prepped and draped in usual fashion. The breast was marked to construct superior and inferior chest wall flaps. Incision was made from the sternum to the axilla in an elliptical fashion around the nipple areolar complex. The breast tissue was dissected away from the subcutaneous tissue superiorly down to the pectoralis major muscle and then also inferiorly, it was dissected away from the subcutaneous tissue down to the pectoralis major muscle and then the breast tissue dissected away from the pectoralis major taking the fascia. Breast was then marked with a long silk suture lateral and sent for routine pathology. Some additional inferior and medial tissue was taken to smooth out the skin. Skin was viable. Subcutaneous tissue was then reapproximated after this wound was irrigated and 2 drains were placed, a #19 and #15 round Aaron-Samuels drains into the chest wound. Subcutaneous tissue reapproximated using 3-0 Vicryl suture, then the skin reapproximated using 4-0 Prolene suture. The patient was transferred to recovery room in stable condition. I attest to the content of the Intraoperative Record and any orders documented therein. Any exception s are noted below.
[2016-09-25] MEDS ORDERED: SUCCINYLCHOLINE 100MG/5ML SYR IV ONE (12:05)
[2016-09-25] MEDS ORDERED: ROCURONIUM BROMIDE 10 MG/ML 5 ML VIAL ONE (12:05)
[2016-09-25] MEDS ORDERED: LIDOCAINE HCL 2% 2 ML VIAL (20MG/ML) ONE (12:05)
[2016-09-25] MEDS ORDERED: EpHEDrine SULFATE 50MG/5ML SYR ONE (12:05)
[2016-09-25] MEDS ORDERED: ONDANSETRON INJ 2 MG/ML 2 ML VIAL ONE (12:05)
[2016-09-25] MEDS ORDERED: NEOSTIGMINE METHYLSULFATE 5 MG/5 ML SYR ONE (12:05)
[2016-09-25] MEDS ORDERED: PROPOFOL IV EMULSION 10 MG/ML 20 ML VIAL IV ONE (12:05)
[2016-09-25] MEDS ORDERED: DEXAMETHASONE SOD INJ 4 MG/ML VIAL ONE (12:05)
[2016-09-25] MEDS ORDERED: GLYCOPYRROLATE INJ 0.2 MG/ML VIAL ONE (12:05)
[2016-09-25] MEDS ORDERED: IV FLUIDS COMPLETED PRN (12:15)
[2016-09-25] MEDS ORDERED: PROMETHAZINE HCL INJ 12.5 MG in SODIUM CHLORIDE 0.9% 50ML 50 ML IV PRN ×2 (12:45→14:15)
[2016-09-25] MEDS ORDERED: EpHEDrine SULFATE INJ 50 MG/ML AMP IV PRN (12:45)
[2016-09-25] MEDS ORDERED: ATROPINE SULFATE 0.1 MG/ML 5ML SYR IV PRN (12:45)
[2016-09-25] MEDS ORDERED: NALOXONE HCL 0.4 MG/1 ML VIAL/CARP IV PRN (12:45)
[2016-09-25] MEDS ORDERED: FLUMAZENIL 0.1 MG/1 ML 10 ML VIAL IV PRN (12:45)
[2016-09-25] MEDS ORDERED: LABETALOL HCL IV 5 MG/ML 20ML IV PRN (12:45)
--- NOTE | 2016-09-25 13:17 | Anesthesiology Progress Note ---
Anesthesia Post Op Note Date & Time Sep 25, 2016 at 13:16 Vital Signs Pain Intensity: 0 Vital Signs Past 12 Hours Date Time Temp Pulse Resp B/P (MAP) Pulse Ox O2 Delivery O2 Flow Rate FiO2 09/25/16 13:15 36.4 09/25/16 13:12 127/59 09/25/16 13:09 87 20 09/25/16 13:09 87 20 96 09/25/16 13:07 116/64 09/25/16 13:04 86 18 98 09/25/16 13:04 86 18 09/25/16 13:02 124/60 09/25/16 12:59 86 18 97 09/25/16 12:59 87 18 09/25/16 12:57 118/58 09/25/16 12:54 87 18 98 09/25/16 12:54 87 18 09/25/16 12:52 126/57 09/25/16 12:50 36.2 09/25/16 12:49 87 15 99 09/25/16 12:49 86 15 09/25/16 12:47 121/62 09/25/16 12:44 88 15 96 09/25/16 12:44 87 15 09/25/16 12:42 127/64 09/25/16 12:39 88 10 09/25/16 12:39 87 10 97 09/25/16 12:38 36.1 85 20 128/64 97 Nasal Cannula 3 09/25/16 12:37 128/63 09/25/16 12:34 84 9 98 09/25/16 12:34 84 9 09/25/16 12:32 128/64 09/25/16 12:29 87 17 09/25/16 12:29 87 17 97 09/25/16 12:27 129/65 09/25/16 12:24 91 15 09/25/16 12:24 90 15 96 09/25/16 12:22 127/67 09/25/16 12:19 90 12 09/25/16 12:19 89 12 99 09/25/16 12:17 126/59 09/25/16 12:14 90 17 09/25/16 12:14 90 17 100 09/25/16 12:12 124/59 09/25/16 12:09 91 19 100 09/25/16 12:09 92 19 09/25/16 12:07 127/62 09/25/16 12:04 92 22 100 09/25/16 12:04 91 17 100 09/25/16 12:02 130/63 09/25/16 11:59 94 09/25/16 11:59 94 100 09/25/16 11:57 129/63 09/25/16 11:56 132/65 09/25/16 11:54 36.2 92 16 129/63 99 Mask 10 09/25/16 07:56 36.7 84 18 139/67 (91) 94 Room Air Notes Mental Status: alert / awake / arousable, participated in evaluation Pt Amnestic to Procedure: Yes Nausea / Vomiting: adequately controlled Pain: adequately controlled Airway Patency, RR, SpO2: stable & adequate BP & HR: stable & adequate Hydration State: stable & adequate Anesthetic Complications: no major complications apparent
--- NOTE | 2016-09-25 14:16 | Medical Student: [facility] ---
Operative Report Operative Date Sep 25, 2016. Pre-Operative Diagnosis Atypical angioproliferation of the right breast Post-Operative Diagnosis Same Procedure(s) Performed Right mastectomy Surgeon Kayden Fields M.D. [employer] Designer Surgeon(s) Leandro Cardenas PA-C Estimated Blood Loss 20cc Findings Right breast Specimens Right breast with silk suture sewn on lateral aspect of the breast Drains #15 & #19 Aaron-Samuels drains Anesthesia General Complication(s) None Disposition Recovery Room / PACU Implants None Description of Procedure Katy Allen was brought in to the operating room and was placed on the table in the Trendelenburg position. The right chest was draped and prepared in normal sterile fashion. The right breast was marked in an elliptical shape surrounding the areola to prepare superior and inferior skin flaps. The breast was incised on the the superior border along these markings through the skin and subcutaneous tissue until the fascia bordering the breast was reached. The breast tissue was dissected along this fascial plane in the cephalad and posterior directions until the upper portion of the pectoralis major was reached. The breast tissue was dissected from the musculature. Incision, dissection, and removal of the breast was repeated on the inferior border. A silk suture was sewn on the lateral aspect of the dissected breast which was then completely removed from the chest and sent to pathology for further examination of the specimen. The skin flaps were placed back on the chest, and it was determined that additional subcutaneous fat should be removed from the inferior-medial aspect of the incision site to ensure a smooth, well-appearing chest after recovery. This subcutaneous tissue was removed, and two round Aaron-Samuels drains were placed (#15 & #19). The surgical site was then closed with 2-0 Vicryl suture for the subcutaneous layer. The skin was closed with simple interrupted stitches using 4-0 prolene suture. After closure, the patient was transferred to the PACU in stable condition for recovery.
[2016-09-25] MEDS ORDERED: LACTATED RINGER'S 1000ML 1,000 ML IV SCH (14:30)
[2016-09-25] MEDS: CEFAZOLIN IV 1,000 MG in DEXTROSE 5% 50ML 50 ML IV SCH ×2 (15:50→21:34)
[2016-09-25] MEDS ORDERED: HYDR-4380 PO (17:42)
[2016-09-25] MEDS ORDERED: DEXTROSE 50% 50 ML SYR IV PRN (17:45)
[2016-09-25] MEDS ORDERED: GLUCOSE 10 TABS/TUBE PO PRN (17:45)
[2016-09-25] MEDS ORDERED: GLUCAGON FOR INJ 1 MG VIAL SQ PRN (17:45)
[2016-09-25] MEDS ORDERED: GLUCOSE 40% GEL 15 GM TUBE PO PRN (17:45)
--- NOTE | 2016-09-25 18:03 | Medical Consult ---
Consultation Date of Consultation: Sep 25, 2016. Attending Physician: Kayden Fields M.D. Reason for Consultation: postop medical management History of Present Illness Patient seen and examined. Patient underwent right mastectomy today by Dr. fields for benign neoplasm of right breast. Patient reports some pain at surgical site - has not asked for medication yet. She states she felt SOB briefly upon waking up from surgery- attributed to her dio wrap being too tight around her chest- resolved immediately when it was loosened, has saturated well on RA. Tolerating diet- had sandwich this afternoon. Last BM was yesterday. Denies dizziness, cough, substernal CP, nausea, vomiting, diarrhea, urinary changes, edema. Past Medical/Surgical History Medical Problems: (1) Robins esophagus Status: Chronic (2) Breast cancer Permanent Comment: R breast s/p lumpectomy and radiation 2002 Status: Chronic (3) Cirrhosis Status: Chronic (4) DM type 2 (diabetes mellitus, type 2) Status: Chronic (5) Dyslipidemia Status: Chronic (6) Fibromyalgia Status: Chronic (7) Hypertension Status: Chronic (8) Hypothyroidism Status: Chronic (9) LIU (nonalcoholic steatohepatitis) Status: Chronic (10) ROXANNE (obstructive sleep apnea) Permanent Comment: on CPAP Status: Chronic Surgical Problems: (1) H/O partial mastectomy Permanent Comment: right breast 2002 Status: Chronic (2) H/O tubal ligation Status: Chronic (3) Hx of cholecystectomy Status: Chronic Family History FH: heart disease MOTHER ( at 56 from [place]) Social History Smoking Status: Current Every Day Smoker (1 ppd. has quit successfully in the past but relapsed from stress. counselled for cessation. ) Alcohol Use: occasionally (rare glass of wine- 1x in several years) Drug Use: none Marital Status: Housing Status: lives with significant other Occupation Status: unemployed Allergies Coded Allergies: Gabapentin (Verified Adverse Reaction, Intermediate, NIGHTMARES, 09/25/16) Morphine (Verified Adverse Reaction, Mild, DOES NOT RELIEVE PAIN, 09/25/16) Home Medications Active Reported Hydrocodone/Acetaminophen (Hydrocodone-Acetaminophen) 1 Tab Tab 1 Tab PO Q6 PRN Aspirin Chewable (Aspirin) 81 Mg Chew 2 Tab PO HS STOP 09/19 Novolin 70/30 (Insulin Human Isoph/Insulin Regular) Susp 1 Dose SC BID SLIDING SCALE BID Vitamin B Complex (B-Complex Vitamins) 1 Tab Tab 1 Tab PO QAM Multivitamin (Multivitamins) Tab 1 Tab PO QAM Klonopin (Clonazepam) 0.5 Mg Tab 0.5 Mg PO TID PRN Flexeril (Cyclobenzaprine Hcl) 10 Mg Tab 10 Mg PO TID PRN Prozac (Fluoxetine HCl) 40 Mg Cap 40 Mg PO QAM Zantac (Ranitidine Hcl) 300 Mg Tab 300 Mg PO HS Levothyroxine Sodium 50 Mcg Tab 50 Mcg PO QAM Lipitor (Atorvastatin Calcium) 80 Mg Tab 80 Mg PO HS Zestril (Lisinopril) 10 Mg Tab 10 Mg PO QAM Current Inpatient Medications Current Inpatient Medications Medications (Trade) Dose Ordered Sig/Alfonzo Route Start Time Stop Time Status Last Admin Dose Admin Ciprofloxacin/ Dextrose 200 ml @ 100 mls/hr PREOP IV 09/25/16 06:00 09/25/16 18:00 09/25/16 10:10 100 MLS/HR Cefazolin Sodium 60 ml @ 100 mls/hr PREOP IV 09/25/16 06:00 09/25/16 18:00 Atorvastatin Calcium (Lipitor Tab) 80 mg HS PO 09/25/16 21:00 10/25/16 20:59 Fluoxetine HCl (Prozac Cap) 40 mg QAM PO 09/26/16 09:00 10/26/16 08:59 Levothyroxine Sodium (Synthroid Tab) 50 mcg DAILYBB PO 09/26/16 06:00 10/26/16 05:59 Lisinopril (Zestril Tab) 10 mg QAM PO 09/26/16 09:00 10/26/16 08:59 Lactated Ringer's 1,000 ml @ 50 mls/hr Q20H IV 09/25/16 14:30 10/25/16 14:29 09/25/16 14:30 50 MLS/HR Cefazolin Sodium 1000 mg/Dextrose 55 ml @ 100 mls/hr Q6H IV 09/25/16 16:00 10/05/16 15:59 09/25/16 15:50 100 MLS/HR Acetaminophen/ Hydrocodone Bitart (Pender 5/325 Tab) 1 tab Q4H PRN PO 09/25/16 11:45 10/09/16 11:44 Acetaminophen/ Hydrocodone Bitart (Pender 5/325 Tab) 2 tab Q4H PRN PO 09/25/16 11:45 10/09/16 11:44 Promethazine HCl 25 mg/Sodium Chloride 51 ml @ 204 mls/hr Q6H PRN IV 09/25/16 11:45 10/25/16 11:44 Ondansetron HCl (Zofran Inj) 4 mg Q6H PRN IV 09/25/16 11:45 10/25/16 11:44 Hydromorphone HCl (Dilaudid Inj) 0.5 mg Q3H PRN IV 09/25/16 11:45 10/09/16 11:44 Hydromorphone HCl (Dilaudid Inj) 1 mg Q3H PRN IV 09/25/16 11:45 10/09/16 11:44 Miscellaneous (Iv Fluids Completed) 1 ea PRN PRN N/A 09/25/16 12:15 09/25/17 12:14 Hydromorphone HCl (Dilaudid Inj) 0.25 mg Q5M PRN IV 09/25/16 12:45 09/25/16 17:45 Naloxone HCl (Narcan Inj) 0.2 mg Q2M PRN IV 09/25/16 12:45 09/25/16 17:45 Flumazenil (Romazicon Inj) 0.2 mg Q2M PRN IV 09/25/16 12:45 09/25/16 17:45 Ondansetron HCl (Zofran Inj) 4 mg ONE PRN IV 09/25/16 12:45 09/25/16 17:45 Promethazine HCl 12.5 mg/Sodium Chloride 50.5 ml @ 202 mls/hr ONE PRN IV 09/25/16 12:45 09/25/16 17:45 Labetalol HCl (Normodyne IV) 5 mg Q5M PRN IV 09/25/16 12:45 09/25/16 17:45 Ephedrine Sulfate (EpHEDrine SULFATE INJ) 5 mg Q5M PRN IV 09/25/16 12:45 09/25/16 17:45 Atropine Sulfate (Atropine Sulfate 0.1MG/Ml Inj) 0.5 mg Q1M PRN IV 09/25/16 12:45 09/25/16 17:45 Promethazine HCl 12.5 mg/Sodium Chloride 50.5 ml @ 204 mls/hr Q6H PRN IV 09/25/16 14:15 10/25/16 14:14 Insulin Aspart (novoLOG ASPART) SLIDING SCALE If C... ACHS SC 09/25/16 21:00 10/25/16 20:59 UNV Glucose (Glucose 40% Gel) 15-30 GRAMS 15 GRAMS... UD PRN PO 09/25/16 17:45 10/25/16 17:44 UNV Glucose (Glucose Chew Tab) 4-8 Tablets 4 Tabl... UD PRN PO 09/25/16 17:45 10/25/16 17:44 UNV Dextrose (Dextrose 50% 50ML Syringe) 25-50ML OF 50% DW IV FOR... UD PRN IV 09/25/16 17:45 10/25/16 17:44 UNV Glucagon (Glucagon Inj) 1 mg UD PRN SQ 09/25/16 17:45 10/25/16 17:44 UNV Review of Systems Ten systems reviewed and negative except as noted in HPI. Physical Exam Date Time Temp Pulse Resp B/P (MAP) Pulse Ox O2 Delivery O2 Flow Rate FiO2 09/25/16 17:11 36.8 99 16 112/73 (86) 93 Room Air 09/25/16 15:50 36.7 96 16 108/55 (72) 93 Room Air 09/25/16 15:45 Room Air 09/25/16 14:50 95 16 123/72 (89) 96 Room Air 09/25/16 14:22 36.8 90 16 112/68 (83) 96 2.0 09/25/16 13:50 Nasal Cannula 2.0 09/25/16 13:50 36.8 16 108/68 (81) 94 Nasal Cannula 2.0 09/25/16 13:15 36.4 09/25/16 13:12 127/59 09/25/16 13:09 87 20 09/25/16 13:09 87 20 96 09/25/16 13:07 116/64 09/25/16 13:04 86 18 98 09/25/16 13:04 86 18 09/25/16 13:02 124/60 09/25/16 12:59 86 18 97 09/25/16 12:59 87 18 09/25/16 12:57 118/58 09/25/16 12:54 87 18 98 09/25/16 12:54 87 18 09/25/16 12:52 126/57 09/25/16 12:50 36.2 09/25/16 12:49 87 15 99 09/25/16 12:49 86 15 09/25/16 12:47 121/62 09/25/16 12:44 88 15 96 09/25/16 12:44 87 15 09/25/16 12:42 127/64 09/25/16 12:39 88 10 09/25/16 12:39 87 10 97 09/25/16 12:38 36.1 85 20 128/64 97 Nasal Cannula 3 09/25/16 12:37 128/63 09/25/16 12:34 84 9 98 09/25/16 12:34 84 9 09/25/16 12:32 128/64 09/25/16 12:29 87 17 09/25/16 12:29 87 17 97 09/25/16 12:27 129/65 09/25/16 12:24 91 15 09/25/16 12:24 90 15 96 09/25/16 12:22 127/67 09/25/16 12:19 90 12 09/25/16 12:19 89 12 99 09/25/16 12:17 126/59 09/25/16 12:14 90 17 09/25/16 12:14 90 17 100 09/25/16 12:12 124/59 09/25/16 12:09 91 19 100 09/25/16 12:09 92 19 09/25/16 12:07 127/62 09/25/16 12:04 92 22 100 09/25/16 12:04 91 17 100 09/25/16 12:02 130/63 09/25/16 11:59 94 09/25/16 11:59 94 100 09/25/16 11:57 129/63 09/25/16 11:56 132/65 09/25/16 11:54 36.2 92 16 129/63 99 Mask 10 09/25/16 07:56 36.7 84 18 139/67 (91) 94 Room Air General Appearance: WD/WN, no apparent distress, + pertinent finding (pleasant 60 y/o female sitting in bedside chair no distress) Head: normocephalic, atraumatic Eyes: normal inspection ENT: hearing grossly normal Neck: trachea midline Respiratory/Chest: lungs clear, normal breath sounds, no respiratory distress, no accessory muscle use, + pertinent finding (s/p right mastectomy. dio wrap in place. 2 drains with sanguinous drainage) Cardiovascular: regular rate, rhythm, no murmur Abdomen/GI: normal bowel sounds, non tender, soft Extremities/Musculoskelatal: no calf tenderness, no pedal edema Neurologic/Psych: alert, normal mood/affect, oriented x 3, + pertinent finding (no focal deficit on gross examination) Skin: normal color, warm/dry Laboratory Results Last 24 Hours Test 09/25/16 08:05 09/25/16 12:32 09/25/16 14:22 09/25/16 17:07 Bedside Glucose 168 mg/dl 177 mg/dl 189 mg/dl Assessment & Plan S/P RIGHT MASTECTOMY For benign neoplasm POD #[address] Fields Pain control and wound care per surgery DM TYPE 2 BSGs 100s-> 200s after no insulin today Hold home Novolin 70/30 Start NovoLog sliding scale coverage Last A1c 9.0 on 07/08/2016, was previously 13.6 in April 2016 HYPERTENSION BP running 100s-110s Continue lisinopril with parameter HYPOTHYROIDISM Continue levothyroxine SLEEP APNEA May use home CPAP DEPRESSION/ ANXIETY Continue Prozac and PRN Klonopin DYSLIPIDEMIA Continue statin ROBINS'S ESOPHAGUS Continue H2 karan DVT PROPHYLAXIS Per primary team Patient seen in collaboration with Dr. Genoveva Mendez. Please see her addendum.
--- NOTE | 2016-09-25 18:11 | Progress Note ---
Progress Note Date of Service Sep 25, 2016. Progress Note Patient was seen and evaluated with MAGALY Montero. Patient is status post right mastectomy Pain +nt 8/10, no fever, chills, nausea, vomiting EXAM: Gen: Obese, AAOX3 HEENT: No icterus Lungs: Left side- decreased, unable to auscultate right side. S/P Mastectomy Ext: No edema ASSESSMENT/PLAN: S/P RIGHT MASTECTOMY For benign neoplasm POD # [address] Fields Pain control and wound care per surgery DM TYPE 2 BSGs 100s-> 200s after no insulin today Hold home Novolin 70/30 Start lantus 4 units q H S while in hospital Last A1c 9.0 on 07/08/2016, was previously 13.6 in April 2016 HYPERTENSION BP running 100s-110s Continue lisinopril with parameter HYPOTHYROIDISM Continue levothyroxine SLEEP APNEA May use home CPAP DEPRESSION/ ANXIETY Continue Prozac and PRN Klonopin DYSLIPIDEMIA Continue statin ROBINS'S ESOPHAGUS Continue H2 karan DVT PROPHYLAXIS Per primary team
[2016-09-25] MEDS ORDERED: INSULIN GLARGINE SOLOSTAR 100 UNITS/ML 3 ML PEN SC SCH (21:00)
[2016-09-25] MEDS ORDERED: INSULIN ASPART 100 UNITS/ML 3 ML PEN SC SCH (21:00)
[2016-09-25] MEDS ORDERED: ATORVASTATIN 40 MG TAB PO SCH (21:00)
[2016-09-25] MEDS ORDERED: NURSING VERBAL MED ORDER ONE (21:00)
[2016-09-26] MEDS: HYDROmorphone INJ 1 MG/ML SYR IV PRN ×2 (03:23→04:01)
[2016-09-26 03:32] VITALS: BP 134/72; PULSE 89; TEMP 36.6; O2SAT 93
[2016-09-26] MEDS: CEFAZOLIN IV 1,000 MG in DEXTROSE 5% 50ML 50 ML IV SCH ×2 (04:07→09:38)
[2016-09-26] MEDS ORDERED: OXYCODONE/ACETAMINOPHEN 5-325 TAB PO PRN ×2 (06:00)
[2016-09-26] MEDS ORDERED: LEVOTHYROXINE 50 MCG TAB PO SCH (06:00)
[2016-09-26] MEDS ORDERED: OXYC-57 PO (06:14)
[2016-09-26] MEDS ORDERED: CEPH500C2 PO (06:14)
--- NOTE | 2016-09-26 06:17 | Discharge Instructions ---
Discharge Instructions Date of Service Sep 26, 2016. Admission Reason for Admission: Atypical Vascular Proliferation, Hx Rt Breast Canc Discharge Discharge Diagnosis / Problem: Abnormal Rt breast tissue Discharge Goals Goal(s): Decrease discomfort, Improve function, Improve disease control Activity Recommendations Activity Limitations: as noted below Lifting Limitations: no more than 10 pounds Exercise/Sports Limitations: until after follow-up appointment May Resume Sexual Activity: when tolerated Shower/Bathe: tomorrow (shower only) Driving or Machine Use: one week SPECIAL CARE INSTRUCTIONS: * Cover incisions and change daily for comfort/drainage. * Empty drain 2-3 times per day and record. * May use ibuprofen for pain as tolerated. * Expect some swelling and bruising. Call your doctor if: * Temperature above 101 degrees * Pain not relieved by pain medicine ordered * There is increased drainage or redness from any incision * You have any unanswered questions or concerns [phone]. FOLLOW UP VISIT: If not already scheduled, please call the office for a follow-up visit. for next week- drain check/ removal OFFICE PHONE NUMBER: Dr. Fields Office . Current Hospital Diet Patient's current hospital diet: Diabetes Type 2 Diet Discharge Diet Recommended Diet: Diabetes Type 2 Diet Procedures Procedures Performed: Right breast mastectomy Pending Studies Studies pending at discharge: no Medical Emergencies . Who to Call and When: Medical Emergencies: If at any time you feel your situation is an emergency, please call 911 immediately. . Non-Emergent Contact Non-Emergency issues call your: Primary Care Provider, Surgeon . "Provider Documentation" section prepared by Kayden Fields. . VTE Core Measure Inpt VTE Proph given/why not?: Unfractionated heparin SQ, SCD's
--- NOTE | 2016-09-26 06:20 | Surgery Progress Note ---
Surgery Progress Note Date of Service Sep 26, 2016. Subjective + feeling well req some IV pain med wants to go home- in no distress Objective Vital Signs: Date Time Temp Pulse Resp B/P (MAP) Pulse Ox O2 Delivery O2 Flow Rate FiO2 09/26/16 03:32 36.6 89 20 134/72 (92) 93 Room Air 09/26/16 00:20 Room Air 09/25/16 23:10 36.8 106 20 138/65 (89) 95 Room Air 09/25/16 20:10 36.7 104 16 132/66 (88) 93 Room Air 09/25/16 17:11 36.8 99 16 112/73 (86) 93 Room Air 09/25/16 15:50 36.7 96 16 108/55 (72) 93 Room Air 09/25/16 15:45 Room Air 09/25/16 14:50 95 16 123/72 (89) 96 Room Air 09/25/16 14:22 36.8 90 16 112/68 (83) 96 2.0 09/25/16 13:50 Nasal Cannula 2.0 09/25/16 13:50 36.8 16 108/68 (81) 94 Nasal Cannula 2.0 09/25/16 13:15 36.4 09/25/16 13:12 127/59 09/25/16 13:09 87 20 09/25/16 13:09 87 20 96 09/25/16 13:07 116/64 09/25/16 13:04 86 18 98 09/25/16 13:04 86 18 09/25/16 13:02 124/60 09/25/16 12:59 86 18 97 09/25/16 12:59 87 18 09/25/16 12:57 118/58 09/25/16 12:54 87 18 98 09/25/16 12:54 87 18 09/25/16 12:52 126/57 09/25/16 12:50 36.2 09/25/16 12:49 87 15 99 09/25/16 12:49 86 15 09/25/16 12:47 121/62 09/25/16 12:44 88 15 96 09/25/16 12:44 87 15 09/25/16 12:42 127/64 09/25/16 12:39 88 10 09/25/16 12:39 87 10 97 6/7/17 12:38 36.1 85 20 128/64 97 Nasal Cannula 3 09/25/16 12:37 128/63 09/25/16 12:34 84 9 98 09/25/16 12:34 84 9 09/25/16 12:32 128/64 09/25/16 12:29 87 17 09/25/16 12:29 87 17 97 09/25/16 12:27 129/65 09/25/16 12:24 91 15 09/25/16 12:24 90 15 96 09/25/16 12:22 127/67 09/25/16 12:19 90 12 09/25/16 12:19 89 12 99 09/25/16 12:17 126/59 09/25/16 12:14 90 17 09/25/16 12:14 90 17 100 09/25/16 12:12 124/59 09/25/16 12:09 91 19 100 09/25/16 12:09 92 19 09/25/16 12:07 127/62 09/25/16 12:04 92 22 100 09/25/16 12:04 91 17 100 09/25/16 12:02 130/63 09/25/16 11:59 94 09/25/16 11:59 94 100 09/25/16 11:57 129/63 09/25/16 11:56 132/65 09/25/16 11:54 36.2 92 16 129/63 99 Mask 10 09/25/16 07:56 36.7 84 18 139/67 (91) 94 Room Air General Appearance: no apparent distress Respiratory/Chest: no respiratory distress Incision(s): intact, drainage (expected from JPs) Laboratory Results: Results Past 24 Hours Test 09/25/16 08:05 09/25/16 12:32 09/25/16 14:22 09/25/16 17:07 Range/Units Bedside Glucose 168 177 189 281 70-90 mg/dl Test 09/25/16 20:32 09/26/16 05:31 Range/Units Bedside Glucose 311 70-90 mg/dl Assessment & Plan 09/26/16- s/p Rt mastectomy- pt wants to go home- ok if pain controlled- try percocet. soc service consult for visiting nurse- will have drains- see in office next week
[2016-09-26 07:12] LABS: HEMATOCRIT 36.7 % (37-47); MEAN CELL VOLUME 89.5 fL (80-100); MEAN CORPUSCULAR HEMOGLOBIN 29.8 pg (25-34); MEAN CORPUSCULAR HGB CONC 33.2 g/dl (32-36); MEAN PLATELET VOLUME 9.2 fL (7.4-10.4); PLATELET COUNT 147 K/uL (130-400); WHITE BLOOD COUNT 11.44 K/uL (4.8-10.8)
[2016-09-26 07:23] LABS: INR 1.1 (0.9-1.1); PROTHROMBIN TIME (PATIENT) 11.4 SECONDS (9.0-12.0)
[2016-09-26 07:37] VITALS: O2SAT 93
[2016-09-26 07:50] LABS: BUN/CREATININE RATIO 17.8 (10-20); CALCIUM 8.8 mg/dl (8.5-10.1); CREATININE 0.84 mg/dl (0.60-1.20); POTASSIUM 4.1 mmol/L (3.5-5.1)
[2016-09-26 07:52] VITALS: BP 112/73; PULSE 61; TEMP 36.6; O2SAT 97
[2016-09-26 09:00] VITALS: BP 122/66
[2016-09-26] MEDS ORDERED: LISINOPRIL 10 MG TAB PO SCH (09:00)
[2016-09-26] MEDS ORDERED: HEPARIN SOD 5000 UNIT/0.5 ML CARP SQ SCH (09:00)
[2016-09-26] MEDS ORDERED: FLUOXETINE HCL 20 MG CAP PO SCH (09:00)
[2016-09-26] MEDS: INSULIN ASPART 100 UNITS/ML 3 ML PEN SC SCH ×2 (09:03→12:58)
--- NOTE | 2016-09-26 10:28 | Anesthesiology Progress Note ---
Anesthesia Post Op Note Date & Time Sep 26, 2016 at 10:28 Vital Signs Pain Intensity: 10.0 Vital Signs Past 12 Hours Date Time Temp Pulse Resp B/P (MAP) Pulse Ox O2 Delivery O2 Flow Rate FiO2 09/26/16 09:00 122/66 (84) 09/26/16 07:52 36.6 61 16 112/73 (86) 97 Room Air 09/26/16 07:37 93 Room Air 09/26/16 03:32 36.6 89 20 134/72 (92) 93 Room Air 09/26/16 00:20 Room Air 09/25/16 23:10 36.8 106 20 138/65 (89) 95 Room Air Notes Mental Status: alert / awake / arousable, participated in evaluation Pt Amnestic to Procedure: Yes Nausea / Vomiting: adequately controlled Pain: adequately controlled Airway Patency, RR, SpO2: stable & adequate BP & HR: stable & adequate Hydration State: stable & adequate Anesthetic Complications: no major complications apparent
[2016-09-26 10:35] VITALS: BP 122/66; PULSE 61; TEMP 36.6; O2SAT 97
[2016-09-26 11:02] VITALS: BP 140/70; PULSE 86; TEMP 36.6; O2SAT 94
--- NOTE | 2016-09-26 11:21 | Medical Student: [facility] ---
Med Student Progress Note Date of Service Sep 26, 2016. Subjective Pt evaluation today including: conversation w/ patient, conversation w/ family CC: "I'm doing good." Ms. Allen is a 60-year-old female post-operative day 1 for right breast mastectomy. Patient reports she is doing well and that she is eager to go home today. She complains of pain over her right chest that is worsened when she coughs and thinks that wearing a girdle may help her. She denies nausea, vomiting, chest pain, and shortness of breath. She is ambulating frequently and has been passing flatus and bowel movements like her normal baseline. Review of Systems Constitutional: + see HPI Objective Vital Signs Date Time Temp Pulse Resp B/P (MAP) Pulse Ox O2 Delivery O2 Flow Rate FiO2 09/26/16 11:02 36.6 86 16 140/70 (93) 94 Room Air 09/26/16 10:35 36.6 61 16 97 Room Air 09/26/16 09:00 122/66 (84) 09/26/16 07:52 36.6 61 16 112/73 (86) 97 Room Air 09/26/16 07:37 93 Room Air 09/26/16 03:32 36.6 89 20 134/72 (92) 93 Room Air 09/26/16 00:20 Room Air 09/25/16 23:10 36.8 106 20 138/65 (89) 95 Room Air 09/25/16 20:10 36.7 104 16 132/66 (88) 93 Room Air 09/25/16 17:11 36.8 99 16 112/73 (86) 93 Room Air 09/25/16 15:50 36.7 96 16 108/55 (72) 93 Room Air 09/25/16 15:45 Room Air 09/25/16 14:50 95 16 123/72 (89) 96 Room Air 09/25/16 14:22 36.8 90 16 112/68 (83) 96 2.0 09/25/16 13:50 Nasal Cannula 2.0 09/25/16 13:50 36.8 16 108/68 (81) 94 Nasal Cannula 2.0 09/25/16 13:15 36.4 09/25/16 13:12 127/59 09/25/16 13:09 87 20 09/25/16 13:09 87 20 96 09/25/16 13:07 116/64 09/25/16 13:04 86 18 98 09/25/16 13:04 86 18 09/25/16 13:02 124/60 09/25/16 12:59 86 18 97 09/25/16 12:59 87 18 09/25/16 12:57 118/58 09/25/16 12:54 87 18 98 09/25/16 12:54 87 18 09/25/16 12:52 126/57 09/25/16 12:50 36.2 09/25/16 12:49 87 15 99 09/25/16 12:49 86 15 09/25/16 12:47 121/62 09/25/16 12:44 88 15 96 09/25/16 12:44 87 15 09/25/16 12:42 127/64 09/25/16 12:39 88 10 09/25/16 12:39 87 10 97 09/25/16 12:38 36.1 85 20 128/64 97 Nasal Cannula 3 09/25/16 12:37 128/63 09/25/16 12:34 84 9 98 09/25/16 12:34 84 9 09/25/16 12:32 128/64 09/25/16 12:29 87 17 09/25/16 12:29 87 17 97 09/25/16 12:27 129/65 09/25/16 12:24 91 15 09/25/16 12:24 90 15 96 09/25/16 12:22 127/67 09/25/16 12:19 90 12 09/25/16 12:19 89 12 99 09/25/16 12:17 126/59 09/25/16 12:14 90 17 09/25/16 12:14 90 17 100 09/25/16 12:12 124/59 09/25/16 12:09 91 19 100 09/25/16 12:09 92 19 09/25/16 12:07 127/62 09/25/16 12:04 92 22 100 09/25/16 12:04 91 17 100 09/25/16 12:02 130/63 09/25/16 11:59 94 09/25/16 11:59 94 100 09/25/16 11:57 129/63 09/25/16 11:56 132/65 09/25/16 11:54 36.2 92 16 129/63 99 Mask 10 Physical Exam General Appearance: WD/WN, no apparent distress Respiratory/Chest: no respiratory distress, + wheezing (low pitch wheeze was heard over lower lobes bilaterally as well as the right middle lobe) Cardiovascular: regular rate, rhythm, no gallop, no murmur Abdomen: normal bowel sounds, + tenderness (noted to the right of the midline where patient reports she has a hernia) Neurologic/Psychiatric: normal mood/affect, oriented x 3 Laboratory Results Last 24 Hours Test 09/25/16 12:32 09/25/16 14:22 09/25/16 17:07 09/25/16 20:32 Bedside Glucose 177 mg/dl 189 mg/dl 281 mg/dl 311 mg/dl Test 09/26/16 07:00 09/26/16 07:50 White Blood Count 11.44 K/uL Red Blood Count 4.10 M/uL Hemoglobin 12.2 g/dL Hematocrit 36.7 % Mean Corpuscular Volume 89.5 fL Mean Corpuscular Hemoglobin 29.8 pg Mean Corpuscular Hemoglobin Concent 33.2 g/dl RDW Standard Deviation 43.6 fL RDW Coefficient of Variation 13.2 % Platelet Count 147 K/uL Mean Platelet Volume 9.2 fL Prothrombin Time 11.4 SECONDS Prothromb Time International Ratio 1.1 Sodium Level 140 mmol/L Potassium Level 4.1 mmol/L Chloride Level 105 mmol/L Carbon Dioxide Level 27 mmol/L Anion Gap 8.0 mmol/L Blood Urea Nitrogen 15 mg/dl Creatinine 0.84 mg/dl Est Creatinine Clear Calc Drug Dose 83.1 ml/min Estimated GFR () 86.9 Estimated GFR (Non- 75.0 BUN/Creatinine Ratio 17.8 Random Glucose 161 mg/dl Calcium Level 8.8 mg/dl Bedside Glucose 184 mg/dl I & O: OLIVIER 40 cc Urine 800 cc PO Fluids 477 cc Medications Medications Administered Medications (Trade) Dose Ordered Sig/Alfonzo Route Start Time Stop Time Status Last Admin Dose Admin Ciprofloxacin/ Dextrose 200 ml @ 100 mls/hr PREOP IV 09/25/16 06:00 09/25/16 18:00 DC 09/25/16 10:10 100 MLS/HR Atorvastatin Calcium (Lipitor Tab) 80 mg HS PO 09/25/16 21:00 10/25/16 20:59 09/25/16 21:24 80 MG Fluoxetine HCl (Prozac Cap) 40 mg QAM PO 09/26/16 09:00 10/26/16 08:59 09/26/16 09:06 40 MG Levothyroxine Sodium (Synthroid Tab) 50 mcg DAILYBB PO 09/26/16 06:00 10/26/16 05:59 09/26/16 06:02 50 MCG Lisinopril (Zestril Tab) 10 mg QAM PO 09/26/16 09:00 10/26/16 08:59 09/26/16 09:05 10 MG Lactated Ringer's 1,000 ml @ 50 mls/hr Q20H IV 09/25/16 14:30 09/26/16 05:53 DC 09/25/16 14:30 50 MLS/HR Cefazolin Sodium 1000 mg/Dextrose 55 ml @ 100 mls/hr Q6H IV 09/25/16 16:00 10/05/16 15:59 09/26/16 09:38 100 MLS/HR Acetaminophen/ Hydrocodone Bitart (Waterflow 5/325 Tab) 2 tab Q4H PRN PO 09/25/16 11:45 09/26/16 05:52 DC 09/25/16 18:44 2 TAB Hydromorphone HCl (Dilaudid Inj) 0.5 mg Q3H PRN IV 09/25/16 11:45 10/09/16 11:44 09/26/16 04:01 0.5 MG Hydromorphone HCl (Dilaudid Inj) 1 mg Q3H PRN IV 09/25/16 11:45 10/09/16 11:44 09/25/16 21:51 1 MG Insulin Aspart (novoLOG ASPART) SLIDING SCALE If C... ACHS SC 09/25/16 21:00 10/25/16 20:59 Future hold 09/26/16 09:03 5 UNITS Insulin Glargine (Lantus Solostar Pen) 4 unit HS SC 09/25/16 21:00 10/25/16 20:59 09/25/16 21:26 4 UNIT Insulin Aspart (novoLOG ASPART) 8 units 2100 SC 09/25/16 21:00 09/25/16 21:01 DC 09/25/16 21:29 8 UNITS Heparin Sodium (Porcine) (Heparin Sq 5000 Unit/0.5ml) 5,000 unit Q12 SQ 09/26/16 09:00 10/26/16 08:59 09/26/16 09:03 5,000 UNIT Assessment and Plan Assessment and Plan: Patient is a 60-year-old female POD #1 for mastectomy. - She reiterated home health plan that she and Dr. Fields discussed. - Patient discussed smoking cessation. - Continue medications as prescribed.
--- NOTE | 2016-10-01 09:40 | DISCHARGE SUMMARY ---
PRINCIPAL DIAGNOSIS: Angioproliferation of the right breast. PROCEDURE: The patient underwent right mastectomy. HISTORY OF PRESENT ILLNESS: The patient is a 60-year-old female who had previous breast cancer of the right breast with lumpectomy and radiation treatment. She has had multiple biopsies of the right breast including a recent biopsy, showing significant skin changes, requiring reexcision. She has decided she would like to have a mastectomy. HOSPITAL COURSE: The patient was brought into the hospital on 09/25/2016, where she underwent right mastectomy, which she tolerated very well, did very well overnight and was felt stable for discharge the next day on 09/26/2016, be followed in the surgical clinic within 1-2 weeks.
[2017-03-12] MEDS ORDERED: EFF/375 PO (08:29)
== END 2016-09-26 13:00 | disposition home health service (06) | DRG 584 ==
LOC: C.ACU 07:12 → C.MSW 11:46 → ENRESERV 12:46 → OBSVTOIN 09-26 05:53
PROVIDERS: ADMIT Surgery; ATTEND Surgery
PROC: 0HTT0ZZ Resection of Right Breast, Open Approach (ICD-10-PCS; principal; 2016-09-25 09:30)
DX: D49.3 Neoplasm of unspecified behavior of breast (principal); Z68.41 Body mass index [BMI] 40.0-44.9, adult; E11.9 Type 2 diabetes mellitus without complications; I10 Essential (primary) hypertension; E03.9 Hypothyroidism, unspecified; E78.00 Pure hypercholesterolemia, unspecified; M79.7 Fibromyalgia; K22.70 Barrett's esophagus without dysplasia; K21.9 Gastro-esophageal reflux disease without esophagitis; F32.9 Major depressive disorder, single episode, unspecified; F41.9 Anxiety disorder, unspecified; E66.01 Morbid (severe) obesity due to excess calories; F17.210 Nicotine dependence, cigarettes, uncomplicated; G47.33 Obstructive sleep apnea (adult) (pediatric); Z99.89 Dependence on other enabling machines and devices; Z85.3 Personal history of malignant neoplasm of breast; Z90.11 Acquired absence of right breast and nipple; Z79.4 Long term (current) use of insulin; Z79.82 Long term (current) use of aspirin; Z79.891 Long term (current) use of opiate analgesic; Z79.899 Other long term (current) drug therapy

== ENCOUNTER → 2017-03-21 | Day surgery (SDC) | payer OTHER ==
[2017-03-12 08:29] VITALS: BMI 42.0
[~2017-03-21] VITALS: Ht 162.6 cm; Wt 112.7 kg
[~2017-03-21] MED LIST changes: +ACETIC ACID 4% (WHITE VINEGAR) 30ML ONE; -CEFAZOLIN 2000 MG/60 ML D5W IV SCH; -CIPROFLOXACIN / D5W 400 MG IV SCH; +EFF/375 PO; -FLUO40CA8 PO; -LACTATED RINGER'S 1000ML 1,000 ML IV SCH; +LIDOCAINE HCL 2% 2 ML VIAL (20MG/ML) ONE; +PROPOFOL IV EMULSION 10 MG/ML 20 ML VIAL IV ONE; +SODIUM CHLORIDE 0.9% 500ML 500 ML IV ONE
[2017-03-21 10:35] VITALS: Ht 162.6 cm; Wt 112.7 kg
--- NOTE | 2017-03-21 12:18 | Endo History and Physical ---
History & Physical Date of Service: Mar 21, 2017. Chief Complaint: BARRETTS Referring Physician: DAVINA REED History of Present Illness h/o nando Past Medical History Diabetes, Osteoporosis, Arthritis, Anxiety, Reflux, High Cholesterol, Sleep Apnea, Hypertension, Thyroid Disease, CVA/TIA, Depression Past Surgical History Hx Cardiac Surgery: No Hx Internal Defibrillator: No Hx Pacemaker: No Hx Abdominal Surgery: Yes (KELVIN, TUBAL LIGATION) Hx Post-Op Nausea and Vomiting: No Hx Cancer Surgery: Yes (RT LUMPECTOMY, RIGHT BREAST BIOPSY, RT MASTECTOMY) Hx Thoracic Surgery: No Hx Orthopedic: Yes (LEFT ANKLE BONE SPUR REMOVAL) Hx Urinary Tract Surgery: No Family History Polyp Social History Smoking Status: Current Every Day Smoker Hx Substance Use: No Hx Alcohol Use: No Allergies Coded Allergies: Gabapentin (Verified Adverse Reaction, Intermediate, NIGHTMARES, 03/21/17) Morphine (Verified Adverse Reaction, Mild, DOES NOT RELIEVE PAIN, 03/21/17) Current Medications Reported Home Medications Medications Dose Route/Sig Max Daily Dose Days Date Category Dose Instructions Effexor (Venlafaxine Hcl) 37.5 Mg Tab 37.5 Mg PO QAM 03/12/17 Reported Aspirin Chewable (Aspirin) 81 Mg Chew 2 Tab PO HS 08/22/16 Reported Novolin 70/30 (Insulin Human Isoph/Insulin Regular) Susp 1 Dose SC BID 08/22/16 Reported SLIDING SCALE BID Vitamin B Complex (B-Complex Vitamins) 1 Tab Tab 1 Tab PO QAM 08/22/16 Reported Multivitamin (Multivitamins) Tab 1 Tab PO QAM 08/22/16 Reported Klonopin (Clonazepam) 0.5 Mg Tab 0.5 Mg PO TID PRN 08/22/16 Reported Flexeril (Cyclobenzaprine Hcl) 10 Mg Tab 10 Mg PO TID PRN 08/22/16 Reported Zantac (Ranitidine Hcl) 300 Mg Tab 300 Mg PO HS 02/29/16 Reported Levothyroxine Sodium 50 Mcg Tab 50 Mcg PO QAM 02/29/16 Reported Lipitor (Atorvastatin Calcium) 80 Mg Tab 80 Mg PO HS 12/13/14 Reported Zestril (Lisinopril) 10 Mg Tab 10 Mg PO QAM 12/26/11 Reported Vital Signs Weight (Kilograms): 112.73 Height (Feet): 5 Height (Inches): 4 Date Time Temp Pulse Resp B/P (MAP) Pulse Ox O2 Delivery O2 Flow Rate FiO2 03/21/17 10:39 37.1 79 20 136/67 (90) 97 Room Air Physical Exam General Appearance: no apparent distress Respiratory/Chest: Auscultation: breath sounds normal Cardiovascular: Heart Auscultation: RRR Abdomen: Inspection & Palpation: soft Assessment and Plan H/o chaney's - egd
--- NOTE | 2017-03-21 13:09 | GI REPORT ---
Procedure Date: 03/21/2017 12:22 PM Procedure: Upper GI endoscopy Indications: Follow-up of Mendiola's esophagus Medicines: See the Anesthesia note for documentation of the administered medications Complications: No immediate complications. Estimated Blood Loss: Estimated blood loss: none. Procedure: Pre-Anesthesia Assessment: - ASA Grade Assessment: III - A patient with severe systemic disease. After obtaining informed consent, the endoscope was passed under direct vision. Throughout the procedure, the patient's blood pressure, pulse, and oxygen saturations were monitored continuously. The scope was introduced through the mouth, and advanced to the second part of duodenum. The upper GI endoscopy was accomplished without difficulty. The patient tolerated the procedure well. Findings: The esophagus and gastroesophageal junction were examined with white light from a forward view and retroflexed position. 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 These changes involved the mucosa at the upper extent of the gastric folds (42 cm from the incisors) extending to the Z-line (41 cm from the incisors). One tongue of salmon-colored mucosa was present. The maximum longitudinal extent of these esophageal mucosal changes was 1 cm in length. Reaction chromoscopy with an acetic acid solution was performed. Mucosa was biopsied with a cold forceps for histology. One specimen bottle was sent to pathology. There was mild fullness to the GE junction, but no varices were seen. The stomach was normal. The examined duodenum was normal. 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 Chromoscopy performed. Biopsied. Recommendation: - Discharge patient to home. Oral Brooks MD 03/21/2017 1:09:24 PM This report has been signed electronically. Note Initiated On: 03/21/2017 12:22 PM I attest to the content of the Intraoperative Record and orders documented therein, exceptions below
--- NOTE | 2017-03-21 13:09 | Discharge Instructions ---
Endoscopy Patient Instructions Date / Procedure(s) Performed Mar 21, 2017. EGD Allergy Information Coded Allergies: Gabapentin (Verified Adverse Reaction, Intermediate, NIGHTMARES, 03/21/17) Morphine (Verified Adverse Reaction, Mild, DOES NOT RELIEVE PAIN, 03/21/17) Discharge Date / Findings Mar 21, 2017. Short segment Mendiola's. Medication Instructions Stopped Medication(s): NO MEDICATIONS TAKEN TODAY Resume all medications Provider Instructions Activity Restrictions - No exercising or heavy lifting for 24 hours. - Do not drink alcohol the day of the procedure. - Do not drive a car or operate machinery until the day after the procedure. - Do not make any important decisions or sign important papers in 24 hours after the procedure. Following Day: - Return to full activity which may include returning to work/school. Diet Start your diet with liquids and light foods (jello, soup, juice, toast). Then eat your usual diet if not nauseated. Treatment For Common After Affects For mild abdominal pain, bloating, or excessive gas: - Rest - Eat lightly - Lie on right side Follow-Up Information Follow-up with DAVINA REED as scheduled Anesthesia Information What You Should Know You have had a procedure that required some medicine to reduce anxiety and discomfort. This treatment is called moderate sedation. After receiving the treatment, you may be sleepy, but you will be able to breathe on your own. The effects of the treatment may last for several hours. Follow these instructions along with Activity/Diet recommendations noted above: * Do NOT do anything where dizziness or clumsiness would be dangerous. * Rest quietly at home today, then you can be up and about tomorrow. * Have a responsible person stay with you the rest of today. * You may have had an I.V. today. If so, you may take the dressing off later today. Recommendations Call your doctor if: * Trouble breathing * Continuous vomiting for more than 24 hours * Temperature above 101 degrees * Severe abdominal pain or bloating * Pain not relieved by pain medicine ordered * There is increased drainage or redness from any incision * A large amount of rectal bleeding greater than 2-3 tablespoons. (If you had a polyp/s removed or have hemorrhoids, a small amount of blood - from the rectum is to be expected.) * You have any unanswered questions or concerns. IN THE EVENT OF A SERIOUS EMERGENCY, GO TO THE NEAREST EMERGENCY ROOM Your discharge instructions were prepared by provider Cyrus Zacarias. Patient Instructions Signature Page Katy Allen Patient (or Guardian) Signature/Date: I have read and understand the instructions given to me by my caregivers. Caregiver/RN/Doctor Signature/Date: The above-named patient and/or guardian has received patient instructions on this date. + Original Patient Signature Page (only) stays with chart. Please make copy for patient.
--- NOTE | 2017-03-21 13:10 | Anesthesiology Progress Note ---
Anesthesia Post Op Note Date & Time Mar 21, 2017 at 13:09 Vital Signs Pain Intensity: 0 Vital Signs Past 12 Hours Date Time Temp Pulse Resp B/P (MAP) Pulse Ox O2 Delivery O2 Flow Rate FiO2 03/21/17 10:39 37.1 79 20 136/67 (90) 97 Room Air Notes Mental Status: alert / awake / arousable, participated in evaluation Pt Amnestic to Procedure: Yes Nausea / Vomiting: adequately controlled Pain: adequately controlled Airway Patency, RR, SpO2: stable & adequate BP & HR: stable & adequate Hydration State: stable & adequate Anesthetic Complications: no major complications apparent
[2017-03-21 13:21] VITALS: BP 157/84; PULSE 78; O2SAT 94
== END | disposition home or self-care (01) ==
LOC: C.GI 10:07
PROVIDERS: ATTEND Internal Medicine Gastroenterology
DX: Z09 Encounter for follow-up examination after completed treatment for conditions other than malignant neoplasm (principal); G47.33 Obstructive sleep apnea (adult) (pediatric); E11.9 Type 2 diabetes mellitus without complications; Z86.73 Personal history of transient ischemic attack (TIA), and cerebral infarction without residual deficits; Z88.5 Allergy status to narcotic agent

== ENCOUNTER → 2017-06-06 | Outpatient (CLI) | payer OTHER ==
[~2017-06-06] MED LIST changes: -ACETIC ACID 4% (WHITE VINEGAR) 30ML ONE; -LIDOCAINE HCL 2% 2 ML VIAL (20MG/ML) ONE; -PROPOFOL IV EMULSION 10 MG/ML 20 ML VIAL IV ONE; -SODIUM CHLORIDE 0.9% 500ML 500 ML IV ONE
--- NOTE | 2017-06-06 10:14 | DIAGNOSTIC IMAGING REPORT ---
R EXTREMITY NONVASCULAR LIMITED HISTORY: 61 years-old Female C50.919 Malignant neoplasm of female [id number] History of ma patient presents with palpable abnormality of the right chest wall with history of prior mastectomy COMPARISON: Right breast ultrasound 08/27/2016 TECHNIQUE: Multiple real-time sonographic images of the right chest wall were obtained assessing grayscale appearance and color flow FINDINGS/IMPRESSION: Within the area of concern within the right chest wall subcutaneous tissues there is a complex heterogeneous ovoid wider than tall lesion demonstrating internal cystic spaces overall measuring 6.6 x 7.0 x 2.4 cm without definite internal vascularity identified. This finding is nonspecific and in the setting of prior mastectomy, this may reflect a hematoma with complex seroma, abscess or recurrent disease also in the differential. Close follow-up with clinical exam is needed. The above report was generated using voice recognition software. It may contain grammatical, syntax or spelling errors. Electronically signed by: Tam Lo M.D. 06/06/2017 10:13 AM Dictated Date/Time: 06/06/2017 10:09 AM
== END ==
LOC: C.ULTR 09:20
PROVIDERS: ATTEND Surgery
DX: C50.919 Malignant neoplasm of unspecified site of unspecified female breast (principal); Z98.890 Other specified postprocedural states; M79.9 Soft tissue disorder, unspecified

== ENCOUNTER → 2017-06-26 | Outpatient (CLI) | payer OTHER ==
[~2017-06-26] MED LIST changes: -ASPCH81X PO; +ASPI-461 PO; -B-COTAB18 PO; +CEPH500C2 PO; +GLC/500 PO; +HYDR-5688 PO; -MULT-506 PO
[2017-06-26 12:26] LABS: BASO % 0.5 %; BASO ABS # 0.04 K/uL (0-0.2); EOS % 3.7 %; EOS ABS # 0.28 K/uL (0-0.5); HEMATOCRIT 38.7 % (37-47); HEMOGLOBIN 13.2 g/dL (12.0-16.0); IG# 0.04 K/uL (0.00-0.02); LYMPH % 30.1 %; LYMPH ABS # 2.27 K/uL (1.2-3.4); MEAN CELL VOLUME 87.4 fL (80-100); MEAN CORPUSCULAR HEMOGLOBIN 29.8 pg (25-34); MEAN CORPUSCULAR HGB CONC 34.1 g/dl (32-36); MEAN PLATELET VOLUME 9.4 fL (7.4-10.4); MONO % 8.8 %; MONO ABS # 0.66 K/uL (0.11-0.59); NEUT % 56.4 %; NEUT ABS # 4.25 K/uL (1.4-6.5); PLATELET COUNT 176 K/uL (130-400); RED CELL DISTRIBUTION WIDTH CV 13.9 % (11.5-14.5); RED CELL DISTRIBUTION WIDTH SD 44.4 fL (36.4-46.3); WHITE BLOOD COUNT 7.54 K/uL (4.8-10.8)
[2017-06-26 13:29] LABS: BLOOD UREA NITROGEN 15 mg/dl (7-18); CALCIUM 9.1 mg/dl (8.5-10.1); CARBON DIOXIDE 29 mmol/L (21-32); CREATININE 0.91 mg/dl (0.60-1.20); GLUCOSE 265 mg/dl (70-99); POTASSIUM 3.6 mmol/L (3.5-5.1); SODIUM 136 mmol/L (136-145)
== END | disposition home or self-care (01) ==
LOC: C.CPL 10:30
PROVIDERS: ATTEND Surgery
DX: Z01.818 Encounter for other preprocedural examination (principal); M79.9 Soft tissue disorder, unspecified; I49.3 Ventricular premature depolarization

== ENCOUNTER → 2017-07-01 | Day surgery (SDC) | payer OTHER ==
[2017-06-24 08:53] VITALS: Ht 162.6 cm; Wt 109.1 kg
[~2017-07-01] VITALS: Ht 162.6 cm; Wt 109.1 kg
[~2017-07-01] MED LIST changes: +ATROPINE SULFATE 0.1 MG/ML 5ML SYR IV PRN; +BUPIVACAINE 0.5 % 5 MG/1 ML MPF 30ML VIAL ONE; +CEFAZOLIN 2000MG IV PUSH 15 ML IV SCH; +DEXAMETHASONE SOD INJ 4 MG/ML VIAL ONE; +EpHEDrine SULFATE INJ 50 MG/ML AMP IV PRN; +FENTANYL CITRATE INJ 50 MCG/1 ML 2 ML VIAL IV PRN; +FENTANYL CITRATE INJ 50 MCG/1 ML 2 ML VIAL ONE; +HYDROCODONE/ACETAMIN 5/325MG TAB PO PRN; +HYDROmorphone INJ 1 MG/ML SYR IV PRN; +LACTATED RINGER'S 1000ML 1,000 ML IV SCH; +LIDOCAINE HCL 1% 20 ML VIAL ONE; +LIDOCAINE HCL 2% 2 ML VIAL (20MG/ML) ONE; +MIDAZOLAM HCL 1 MG/ML 2ML VIAL ONE; +ONDANSETRON INJ 2 MG/ML 2 ML VIAL IV PRN; +ONDANSETRON INJ 2 MG/ML 2 ML VIAL ONE; +PROMETHAZINE HCL INJ 12.5 MG in SODIUM CHLORIDE 0.9% 50ML 50 ML IV PRN; +PROPOFOL IV EMULSION 10 MG/ML 20 ML VIAL IV ONE; +SODIUM CHLORIDE 0.9% 1000ML 1,000 ML IV SCH; +THROMBIN 5000 UNITS KIT ONE
--- NOTE | 2017-07-01 07:57 | [facility] Operative Report ---
Operative Report Operative Date Jul 01, 2017. Pre-Operative Diagnosis Right chest wall soft tissue mass History of masectomy Post-Operative Diagnosis Same as pre-op Procedure(s) Performed Right Chest Wall Biopsy evacuation of hematoma Surgeon Body And Fender Mechanic Surgeon(s) Eliana GALLEGOS Estimated Blood Loss 20ML Findings old hematoma Specimens A.Right chest wall biopsy Drains None (#[address] Rd OLIVIER) Anesthesia Type General Complication(s) none Disposition Recovery Room / PACU I attest to the content of the Intraoperative Record and any orders documented therein. Any exceptions are noted below.
--- NOTE | 2017-07-01 08:04 | Discharge Instructions-SurgCtr ---
Discharge Instructions Date of Service Jul 01, 2017. Visit Reason for Visit: Soft Tissue Mass Right Chest Wall Mass, Hx Mastect Discharge Discharge Diagnosis / Problem: Rt chest wall hematoma Discharge Goals Goal(s): Decrease discomfort, Improve function, Improve disease control Medications Stopped Medications Name(s): metformin and lisonopril Activity Recommendations Activity Limitations: as noted below Lifting Limitations: no more than 25 pounds Exercise/Sports Limitations: until after follow-up appointment May Resume Sexual Activity: when tolerated Shower/Bathe: tomorrow Driving or Machine Use: resume 1 day after discharge Anesthesia . Post Anesthesia Instructions: If you have had General Anesthesia or IV Sedation: * Do not drive today. * Resume driving when surgeon permits. * Do not make important decisions or sign legal documents today. * Call surgeon for: 1. Temperature elevations greater than 101 degrees F. 2. Uncontrollable pain. 3. Excessive bleeding. 4. Persistent nausea and vomiting. 5. Medication intolerance (nausea, vomiting or rash). * For nausea and vomiting use only clear liquids such as: tea, soda, bouillon until nausea subsides, then gradually increase diet as tolerated. * If you have any concerns or questions, call your surgeon's office. If physician is unavailable and it is an emergency, call 911 or go to the nearest emergency room. . Instructions / Follow-Up Instructions / Follow-Up SPECIAL CARE INSTRUCTIONS: * Cover incisions and change daily for comfort/drainage. * Empty drain 2-3 times per day and record. * May use ibuprofen for pain as tolerated. * Expect some swelling and bruising. Call your doctor if: * Temperature above 101 degrees * Pain not relieved by pain medicine ordered * There is increased drainage or redness from any incision * You have any unanswered questions or concerns [phone]. FOLLOW UP VISIT: If not already scheduled, please call the office for a follow-up visit. for 07/04- check up, drain check OFFICE PHONE NUMBER: Dr. Fields Office Diet Recommendations Home Diet: resume previous diet Procedures Procedures Performed: Right Chest Wall Biopsy evacuation of hematoma Pending Studies Studies pending at discharge: no Medical Emergencies . Who to Call and When: Medical Emergencies: If at any time you feel your situation is an emergency, please call 911 immediately. . Non-Emergent Contact Non-Emergency issues call your: Primary Care Provider, Surgeon . . "Provider Documentation" section prepared by Kayden Fields. .
--- NOTE | 2017-07-01 08:16 | OPERATIVE REPORT ---
DATE OF OPERATION: 07/01/2017 NAME OF OPERATION: Right chest wall biopsy with evacuation of hematoma. STAFF SURGEON: Dr. Fields. HOT SAW HELPER: Rebekah Molina PA-C. ANESTHESIA: General. PROCEDURE: The patient was brought in the operating room and placed on the operating table in supine position. After appropriate LMA anesthesia, her right chest wall was prepped and draped in usual fashion. She had a soft tissue mass above the incision in the right chest area laterally. She had undergone previous mastectomy. Elliptical incision was made incorporating the old scar, taking the dissection down through the subcutaneous tissue, encountering what appeared to be old hematoma. An ellipse of skin was sent for routine pathology as well as some hematoma. The remainder of the hematoma was evacuated. I did use some thrombin as the patient has had previous radiation and surgery and was somewhat hypervascular. A 15-round Aaron-Samuels drain was placed through a separate stab incision into the wound, secured using 3-0 nylon suture. The wound was then closed using interrupted 3-0 and 4-0 nylon suture. Dressing applied and the patient transferred to recovery room in stable condition. My it administrative assistant helped with prepping, draping, excising the tissue, evacuation of the hematoma and closure of the wound. I attest to the content of the Intraoperative Record and any orders documented therein. Any exception s are noted below.
[2017-07-01 08:49] VITALS: TEMP 36.2
[2017-07-01 09:08] VITALS: BP 138/79; PULSE 85; O2SAT 94
--- NOTE | 2017-07-01 09:18 | Anesthesia Progress Nt - [facility] ---
Anesthesia Post Op Note Date & Time Jul 01, 2017 at 09:17 Vital Signs Pain Intensity: 1 Vital Signs Past 12 Hours Date Time Temp Pulse Resp B/P (MAP) Pulse Ox O2 Delivery O2 Flow Rate FiO2 07/01/17 09:08 85 12 138/79 (98) 94 Room Air 07/01/17 08:49 36.2 85 20 143/79 (100) 95 Room Air 07/01/17 08:39 83 16 07/01/17 08:39 82 16 95 07/01/17 08:37 36.2 79 15 121/70 93 Room Air 07/01/17 08:36 121/70 07/01/17 08:34 84 21 98 07/01/17 08:34 84 21 07/01/17 08:31 124/64 07/01/17 08:29 82 17 07/01/17 08:29 82 17 95 07/01/17 08:26 125/69 07/01/17 08:24 84 10 07/01/17 08:24 76 10 96 07/01/17 08:22 115/67 07/01/17 08:19 84 11 95 07/01/17 08:19 84 11 07/01/17 08:16 148/78 07/01/17 08:14 84 14 99 07/01/17 08:14 85 14 07/01/17 08:11 143/82 07/01/17 08:09 84 10 99 07/01/17 08:09 84 10 07/01/17 08:06 140/91 07/01/17 08:04 83 15 99 07/01/17 08:04 83 15 07/01/17 08:01 145/87 07/01/17 08:00 137/89 07/01/17 07:59 36.1 85 16 137/89 98 Mask 6 07/01/17 06:33 36.7 85 16 124/67 (86) 95 Room Air Notes Mental Status: alert / awake / arousable, participated in evaluation Pt Amnestic to Procedure: Yes Nausea / Vomiting: adequately controlled Pain: adequately controlled Airway Patency, RR, SpO2: stable & adequate BP & HR: stable & adequate Hydration State: stable & adequate Anesthetic Complications: no major complications apparent Pt awake, doing well, no complaints. VSS. Ready for d/c
== END | disposition home or self-care (01) ==
LOC: X.SURG 06:16
PROVIDERS: ATTEND Surgery
DX: L90.5 Scar conditions and fibrosis of skin (principal); G47.33 Obstructive sleep apnea (adult) (pediatric); I10 Essential (primary) hypertension; Z86.73 Personal history of transient ischemic attack (TIA), and cerebral infarction without residual deficits; E11.9 Type 2 diabetes mellitus without complications; Z88.6 Allergy status to analgesic agent; Z98.890 Other specified postprocedural states; Z90.10 Acquired absence of unspecified breast and nipple; E03.9 Hypothyroidism, unspecified; Z98.51 Tubal ligation status; E78.5 Hyperlipidemia, unspecified; Z90.710 Acquired absence of both cervix and uterus; F17.200 Nicotine dependence, unspecified, uncomplicated; Z79.899 Other long term (current) drug therapy; Z79.82 Long term (current) use of aspirin; Z90.49 Acquired absence of other specified parts of digestive tract; Z85.3 Personal history of malignant neoplasm of breast; Z82.49 Family history of ischemic heart disease and other diseases of the circulatory system; Z83.49 Family history of other endocrine, nutritional and metabolic diseases; Z82.61 Family history of arthritis; Z80.1 Family history of malignant neoplasm of trachea, bronchus and lung; Z83.3 Family history of diabetes mellitus

== ENCOUNTER → 2017-09-03 | Outpatient (CLI) | payer OTHER ==
[~2017-09-03] MED LIST changes: -ATROPINE SULFATE 0.1 MG/ML 5ML SYR IV PRN; -BUPIVACAINE 0.5 % 5 MG/1 ML MPF 30ML VIAL ONE; -CEFAZOLIN 2000MG IV PUSH 15 ML IV SCH; -DEXAMETHASONE SOD INJ 4 MG/ML VIAL ONE; -EpHEDrine SULFATE INJ 50 MG/ML AMP IV PRN; -FENTANYL CITRATE INJ 50 MCG/1 ML 2 ML VIAL IV PRN; -FENTANYL CITRATE INJ 50 MCG/1 ML 2 ML VIAL ONE; -HYDROCODONE/ACETAMIN 5/325MG TAB PO PRN; -HYDROmorphone INJ 1 MG/ML SYR IV PRN; -LACTATED RINGER'S 1000ML 1,000 ML IV SCH; -LIDOCAINE HCL 1% 20 ML VIAL ONE; -LIDOCAINE HCL 2% 2 ML VIAL (20MG/ML) ONE; -MIDAZOLAM HCL 1 MG/ML 2ML VIAL ONE; -ONDANSETRON INJ 2 MG/ML 2 ML VIAL IV PRN; -ONDANSETRON INJ 2 MG/ML 2 ML VIAL ONE; -PROMETHAZINE HCL INJ 12.5 MG in SODIUM CHLORIDE 0.9% 50ML 50 ML IV PRN; -PROPOFOL IV EMULSION 10 MG/ML 20 ML VIAL IV ONE; -SODIUM CHLORIDE 0.9% 1000ML 1,000 ML IV SCH; -THROMBIN 5000 UNITS KIT ONE
== END | disposition home or self-care (01) ==
LOC: C.LABSPEC 17:53
PROVIDERS: ATTEND Surgery
DX: J86.9 Pyothorax without fistula (principal)

== ENCOUNTER → 2017-10-31 | Outpatient (CLI) | payer OTHER ==
[~2017-10-31] MED LIST changes: -ASPI-461 PO; +ASPI81TA28 PO; -CLON0.5T3 PO; -GLC/500 PO; +INSDGIPEN SC; -INSU70IN2 SC; +KLN/5 PO; +MELA1TAB49 PO; +METF500T5 PO; +METR0.7510 EX
== END | disposition home or self-care (01) ==
LOC: C.LABSPEC 17:21
PROVIDERS: ATTEND Emergency Medicine
DX: T81.4XXA Infection following a procedure, initial encounter (principal); Y84.9 Medical procedure, unspecified as the cause of abnormal reaction of the patient, or of later complication, without mention of misadventure at the time of the procedure